=== PATIENT | male | born 1985 | race Caucasian/White ===

== ENCOUNTER 2024-05-04 00:34 | Emergency (ER) | payer MEDICAID, SELFPAY ==
[2024-05-04 00:36] VITALS: BP 156/102; PULSE 104; RESP 18; O2SAT 98
--- NOTE | 2024-05-04 00:50 | EDNOTE_ITS ---
ED Medical Clearance RME/HPI General Chief complaint: Medical Clearance Stated complaint: MEDICAL CLEARANCE Time Seen by Provider: 05/04/24 00:50 Arrival date/time: 05/04/24 00:34 RME / HPI RME / HPI Narrative: Dr. Willis?s Main ED Evaluation: 38yo male BIB [facility]ORD[facility] presents to the ED for a medical clearance. [employer] was initially called out due to the patient possibly overdosing. On scene, they found the patient to be sleeping, but he woke up and ran. He was ultimately arrested. Here in the ED, patient is refusing to provide any history or answer any questions. He will not let me examine him. Related Information Home Medications ?Medication ?Instructions ?Recorded ?Confirmed No Known Home Medications 01/23/2004/22 Allergies Allergy/AdvReac Type Severity Reaction Status Date / Time No Known Allergies Allergy Verified 04/07/23 08:14 Review of Systems Review of Systems ROS Unobtainable: other (unobtainable due to the patient being uncooperative) Past Medical History Past Medical History NEUROLOGIC: Negative Neurological Disorders CARDIAC: Negative Cardiac Disorders or Congestive Heart Failure RESPIRATORY: Negative Chronic Obstructive Pulmonary Disease (COPD) GASTROINTESTINAL: Negative Gastrointestinal Disorders GENITOURINARY: Negative Genitourinary Disorders or Renal Disease MUSCULOSKELETAL: Negative Musculoskeletal Disorders ENDOCRINE: Negative Endocrine Disorders, Diabetes Mellitus Type 1 or Diabetes Mellitus Type 2 HEMATOLOGIC: Negative Blood Disorders PSYCHO/SOCIAL: Positive Schizophrenia, Bipolar Disorder and Behavior Problems Family History FAMILY HISTORY: Negative Family Cardiac Disorders Social History SMOKING STATUS: Unknown if ever smoked SUBSTANCE USE: methamphetamine ED Exam Narrative Physical exam: Patient refused to allow me to perform a physical examination. Course Quality Measures none Orders Category Date Time Status EKG (ED ONLY) *Do not use* NOW Care 05/04/24 00:53 Completed EKG (ED Only) Stat Exams 05/04/24 00:53 Ordered Vital Signs Vital signs: Vital Signs Pulse Rate 104 H 05/04/24 00:36 Respiratory Rate 18 05/04/24 00:36 Blood Pressure 156/102 H 05/04/24 00:36 Pulse Oximetry (%) 98 05/04/24 00:36 Oxygen Delivery Method Room Air 05/04/24 00:36 Medical Clearance MDM Narrative MDM Narrative:: Scribe Attestation: 05/04/24 Erica Vega am scribing for and in the presence of Dr. Willis. Patient data External records reviewed:: [facility] previous records (Per chart review, patient was seen here on 04/06/23 for acute psychosis.) Clinical information provided by:: patient Social determinants that could affect healthcare access:: mental health Patient has the following chronic illnesses:: schizophrenia, bipolar disorder How is presenting disease/condition affected by chronic disease/condition?: uneffected by Evaluation data The following diagnostics were reviewed and interpreted by me:: EKG tracing(s) Lab and/or radiology exams considered but not ordered:: none Interpretation Summary: none Medications / Prescriptions Medications or Prescriptions considered but not ordered:: none Medication administrations:: none Consultations Consultation(s) initiated? (list below): No Diagnosis Medical Clearance Differential Diagnosis: other (medical clearance) Most likely diagnosis given after review of the tests above:: see below Admission Indicated Admission indicated?: not indicated Admission Request Was there a request for admission?: No Disposition Plan Disposition Plan: Discharge Discharge Attestation Discharge Attestation: The patient and all family members were given an opportunity to ask questions and understood the discharge instructions. Discharge instructions specifically effects, indications for sooner follow up or return to the emergency department, and the expected course of current diagnosis. Patient condition: Stable Discharge Plan Plan Patient Disposition: Shelter/Court/Law Disposition Comment: Stable for discharge into police custody Prescriptions/Referrals Prescriptions/Med Rec: No Action No Known Home Medications Referrals: [facility] [Outside] - In 1 week Problem List Clinical Impression: Medical clearance for incarceration Patient/Caregiver Discharge Instructions Discharge Activity: activity as tolerated Education Materials: Reducing Your Health Risks ... Additional Instructions: Please return to the emergency department if you have any worsening or any further medical problems. Otherwise you should follow-up with your primary care doctor or in the family [facility] within the next several days. Print Language: Turkmen Stand Alone Forms: April Award Info., Patient Portal Info Letter
== END 2024-05-04 01:27 ==
LOC: SERX 01:43
PROVIDERS: Emergency Provider Emergency Medicine
DX: Z02.89 Encounter for other administrative examinations (principal); F20.9 Schizophrenia, unspecified; F31.9 Bipolar disorder, unspecified
CPT/HCPCS: 93005; 99283

== ENCOUNTER 2024-05-04 12:45 | Emergency (ER) | payer MEDICAID, SELFPAY ==
[2024-05-04 12:49] VITALS: BP 158/93; PULSE 98; RESP 18; TEMP 35.5; O2SAT 100
--- NOTE | 2024-05-04 12:51 | PD.EDPSYCH ---
ED Psych RME/HPI General Chief Complaint: Psychiatric Symptoms Stated Complaint: 5150 HOLD Time Seen by Provider: 05/04/24 12:48 Arrival date/time: 05/04/24 12:45 RME / HPI RME / HPI Narrative: 38-year-old male patient, homeless, was brought in by EMS for 5150 hold. Apparently patient was released from nursing home today, was in the nursing home for 12 hours after being noted to be roaming around, yesterday. Patient was placed on a 5150 hold due to not being able to care for himself. On my initial evaluation patient answer questions only his name other than that he is refusing to answer questions. Related Data Home Medications ?Medication ?Instructions ?Recorded ?Confirmed No Known Home Medications 01/23/20 04/02/21 Allergies Allergy/AdvReac Type Severity Reaction Status Date / Time No Known Allergies Allergy Verified 04/07/23 08:14 Review of Systems Review of Systems ROS Unobtainable: unobtainable due to mental status and unobtainable due to medical condition ED Exam Narrative Physical exam: VITAL SIGNS: Reviewed. GENERAL APPEARANCE: Alert and good eye contact however not following commands and not answering questions, no acute distress, unkept HEAD AND FACE: Non-traumatic. ENT: PERRL, pink conjunctivitis, eyelid no trauma, Mucous membrane moist. NECK: Supple, nontender, no nuchal rigidity. CHEST: No tenderness, no crepitus, no paradoxical movement, no retractions. LUNGS: Clear, well ventilated, symmetric, no rales, no wheezing, no ronchi, no stridor, good breath sounds bilaterally. HEART: Regular rate, regular rhythm, no murmur, no gallops. ABDOMEN: Soft, positive bowel sounds, nondistended, no guarding, nontender, no rebound, no masses, RECTAL: Deferred. GENITAL: Deferred. NEUROLOGICAL: Gross motor function intact sensory function intact, Appropriate for age. MUSCULOSKELETAL: low back nontender, full range of motion. EXTREMITIES: Nontender, full range of motion. SKIN: Color pink, dry, no rash, no lacerations, no abrasions, no contusions. LYMPHATICS: Deferred. Course Quality Measures none Orders Category Date Time Status Diet Regular Diet 05/04/24 Dinner Active Acetaminophen Stat Lab 05/04/24 13:32 Completed Alcohol, Blood Medical Stat Lab 05/04/24 13:32 Completed CBC Stat Lab 05/04/24 13:32 Completed CMP [Comprehensive Metabolic Panel] Stat Lab 05/04/24 13:32 Completed Drug Screen,Urine Stat Lab 05/04/24 16:01 Completed Salicylate Stat Lab 05/04/24 13:32 Completed Urinalysis Stat Lab 05/04/24 16:01 Completed Vital Signs Vital signs: Vital Signs Temperature 96 F L 05/04/24 12:49 Pulse Rate 98 05/04/24 12:49 Respiratory Rate 18 05/04/24 12:49 Blood Pressure 158/93 H 05/04/24 12:49 Pulse Oximetry (%) 100 05/04/24 12:49 Oxygen Delivery Method Room Air 05/04/24 12:49 Psych MDM Narrative MDM Narrative:: 38-year-old male patient, homeless, was brought in by EMS for 5150 hold. Apparently patient was released from nursing home today, was in the nursing home for 12 hours after being noted to be roaming around, yesterday. Patient was placed on a 5150 hold due to not being able to care for himself. On my initial evaluation patient answer questions only his name other than that he is refusing to answer questions. Patient tested positive for methamphetamine. Patient is medically cleared. Patient was seen by social science analyst earlier today, and pending placement Care transferred to Dr Murry at 11 pm for final disposition Patient data External records reviewed:: EMS form Clinical information provided by:: patient Social determinants that could affect healthcare access:: mental health Patient has the following chronic illnesses:: Mental health How is presenting disease/condition affected by chronic disease/condition?: caused by Evaluation data The following diagnostics were reviewed and interpreted by me:: lab results Lab and/or radiology exams considered but not ordered:: None Interpretation Summary: Laboratory workup significant for positive for meth otherwise unremarkable. Medications / Prescriptions Medications or Prescriptions considered but not ordered:: None Medication administrations:: None Consultations Consultation(s) initiated? 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
[2024-05-04 12:53] VITALS: PULSE 76; RESP 18; O2SAT 97; BMI 22.1
--- NOTE | 2024-05-04 13:09 | PC.CC ---
Patient is a 38 year-old male BIBA from [facility] on a 5150-hold by Mental Health Clinician, Vee Mckee for Gravely Disabled and Danger to Self. Upon medical clearance ASW will complete a mental health evaluation.
--- NOTE | 2024-05-04 13:20 | PC.NURSE ---
PT BIB EMS ON A 5150 HOLD FOR GRAVELY DISABLED AND HARM TO SELF, THIS PT WAS PLACED ON THIS 5150 HOLD FROM THE ASSISTED AFTER HE SPEND APROX 12H INCARCERATED FOR PUBLIC INTOXICATION. INITIAL ASSESSMENT SHOWED THE PT UNKEMPT, TALKING TO SELF, RESPONDING TO INTERNAL STIMULI, AND UNABLE TO STAY IN A CONVERSATION WITHOUT HALLUCINATING. PT IS A GCS OF 15, AND A&O X2. PT WAS GIVEN UPDATE ON PLAN OF CARE. 1 ON 1 SITTER IN PLACED
[2024-05-04 13:47] LABS: Basophils % (Auto) 0 % (0-2.5); Eosinophils % (Auto) 0 % (0-10); Hematocrit 44.9 % (41.0-53.0); Hemoglobin 15.3 g/dL (13.5-16.0); Immature Granulocytes % (Auto) 0 % (0-0); Immature Granulocytes Auto 0.02 Thou/mm3 (0.00-0.00); Lymphocytes # (Auto) 1.3 Thou/mm3 (1.0-4.8); Lymphocytes % (Auto) 14 % (10-50); Mean Corpuscular HGB Conc 34.1 g/dl (31.0-37.0); Mean Corpuscular Hemoglobin 29.5 pg (25.0-35.0); Mean Corpuscular Volume 87 fL (80-100); Monocytes # (Auto) 0.9 Thou/mm3 (0.0-0.8); Monocytes % (Auto) 10 % (0-12); Neutrophils # (Auto) 6.9 Thou/mm3 (1.8-7.7); Neutrophils % (Auto) 76 % (37-80); Nucleated Red Blood Cell % 0 /100 WBC (0); Platelet Count 353 Thou/mm3 (140-440); RDW Standard Deviation 45.2 fL (35.1-43.9); Red Blood Count 5.19 Miln/mm3 (4.50-5.90); White Blood Count 9.1 Thou/mm3 (3.8-10.6)
[2024-05-04 14:01] LABS: Acetaminophen < 2.0 mcg/mL (10.0-20.0); Alanine Aminotransferase 27 U/L (10-49); Albumin, Serum 5.1 gm/dL (3.5-5.0); Albumin/Globulin Ratio 1.7 (1.2-2.2); Alcohol, Blood Medical < 3.0 mg/dL (0-10.0); Alkaline Phosphatase 121 U/L (46-116); Anion Gap 12 (7-16); Aspartate Amino Transferase 58 U/L (0-34); BUN/Creatinine Ratio 16 Ratio (12-20); Bilirubin,Total 0.4 mg/dL (0.3-1.2); Blood Urea Nitrogen 16 mg/dL (9-23); Calcium 10.2 mg/dL (8.3-10.6); Calcium (Corrected) 10.2 mg/dL (8.5-10.1); Carbon Dioxide 23.5 mMol/L (20.0-31.0); Chloride 105 mMol/L (98-107); Estimated Creatinine Clearance 94.5 mL/min (>60); Glucose 89 mg/dL (74-106); Osmolality,Calculated 279 (275-295); Potassium 3.8 mMol/L (3.4-5.1); Salicylate < 3.0 mg/dL; Sodium 140 mMol/L (136-145); Total Protein 8.1 gm/dL (5.7-8.2); eGFR > 60 See Note
[2024-05-04 15:03] VITALS: BP 159/99; PULSE 82; RESP 18; TEMP 36.4; O2SAT 99
[2024-05-04 16:15] LABS: Collection Type, Urine Clean Catch; Squamous Epithelial Cell,Urine 0 /hpf (0-5)
[2024-05-04 16:34] LABS: Bacteria,Urine Rare; Bilirubin,Urine Negative (Negative); Blood,Urine Negative (Negative); Clarity,Urine Clear (Clear/Hazy); Color,Urine Yellow (Lt Yel-Yel); Glucose, Urine Negative (Negative); Hyaline Casts,Urine 1 /hpf (0-1); Ketones,Urine 2+ (Negative); Leukocyte Esterase,Urine Negative (Negative); Nitrite,Urine Negative (Negative); PH,Urine 5.5 (5.0-7.0); Protein,Urine 1+ (Neg - Trace); RBC,Urine 5 /hpf (0-3); Specific Gravity,Urine 1.026 (1.001-1.035); Urobilinogen,Urine Negative mg/dL (0.0-1.0); WBC,Urine 3 /hpf (0-5)
[2024-05-04 16:37] LABS: Sperm,Urine Present
[2024-05-04 16:40] LABS: Amphetamine/Methamp Scrn,U Positive (Negative); Barbiturate Screen,Urine Negative (Negative); Benzodiazepines Screen,Urine Negative (Negative); Benzoylecgonine Screen, Ur Negative (Negative); Fentanyl Screen,Urine Negative (Negative); Opiate Screen,Urine Negative (Negative); THC Screen,Urine Negative (Negative)
--- NOTE | 2024-05-04 17:17 | PC.CC ---
Patient was BIBA on a 5150-hold by [facility]-Clinician Vee Mckee for Gravely Disable and Danger to Self. ASWKyra introduced self, role, and reason for visit to patient. Patient appears alert and oriented to self, and [facility]. Patient presents unkempt and disheveled. Patient unable to answer questions as he stared at the wall and then window. Patient unable to engage in assessment. ASW made contact with [facility] staff report patient was discharged from outpatient mental health services in January 2023. Prior ED visits it was documented patient has a mental health diagnosis of Schizophrenia. Upon clinical consultation with BRIQUETTE OPERATORPia patient's 5150-hold will be upheld for Gravely Disabled. ASW provided update of placing patient at an LPS facility to Dr. Valderrama, DIAMOND Phelps, screen printing inspector Gabriella, and bedside RN Quang. ASW to send referral to LPS facilities via [facility]. ASW unable to provide advisement as patient is not able to engage.
--- NOTE | 2024-05-04 18:46 | PC.NURSE ---
[facility] called for update, rejected patient due to acuity and availability. Suggested resubmitting case if pt is still in 24 hours. Case Management and Charge nurse Tan made aware.
[2024-05-04 19:55] VITALS: BP 147/87; PULSE 92; RESP 20; TEMP 36.8; O2SAT 97
--- NOTE | 2024-05-04 19:57 | PC.NURSE ---
attempted to do assessments patient did not respond to no questions
--- NOTE | 2024-05-04 21:52 | PC.NURSE ---
MELISSA CALLED FROM [facility] BEDS AT THE [facility] TO GET NURSING CLINICALS
[2024-05-04 21:56] VITALS: BP 142/80; PULSE 80; RESP 20; TEMP 36.8; O2SAT 99
--- NOTE | 2024-05-04 22:05 | PC.NURSE ---
pt was offered food and drinks, but declined. Will continue to offer throughout the shift.
--- NOTE | 2024-05-04 23:14 | EDNOTE_ITS ---
Emergency Room Addendum <Erica Alex - Last Filed: 05/04/24 23:14> Addendum Narrative: I took over the care from Paul Phelps NP at 6 PM on 05/04/2024, see his notes for complete H&P and ED course. <Chaitanya Menchaca MD - Last Filed: 05/05/24 01:52> Addendum Narrative: I took over the care from Paul Phelps NP at 6 PM on 05/04/2024, see his notes for complete H&P and ED course. At 6 AM on 05/05/2024, the care of the patient was transferred to Dr. HARDY. Evaluation by our ED adult live in caregiver pending. During my watch, the patient remained stable. Chaitanya Menchaca MD
[2024-05-05 04:05] VITALS: BP 138/79; PULSE 83; RESP 18; TEMP 36.6; O2SAT 98
--- NOTE | 2024-05-05 06:15 | PD.EDADDENDU ---
Emergency Room Addendum Addendum Narrative: 0600: Care assumed from Dr. Menchaca, the previous shift emergency physician. Past medical, surgical, social and family history reviewed. Vitals and home medications reviewed. I will assume the care of the patient at this time, pending psychiatric placement. Please refer to the emergency department record for history and examination from initial visit.? Physical exam by me shows patient under no acute distress at this time. The patient was placed in ED observation care at 05/05/2024 at 0600 hours. The patient was placed in ED observation care because of undifferentiated decompensated behavioral health evaluation, no behavioral health bed available. The patients past medical history, social history, and family history were reviewed. The plan of care will include serial examinations. While in ED observation the patient will have access to water, food, and personal hygiene. If the patient takes home medication(s), they will be continued in ED observation. 1050: Patient picked up by EMS, accepted to [facility]. ED observation care ended at 05/05/2024 at 1050 hours. Diagnosis: Drug-induced psychotic disorder
--- NOTE | 2024-05-05 07:25 | PC.NURSE ---
spoke w/[facility] intake, will present case to team, and call back
--- NOTE | 2024-05-05 08:06 | PC.NURSE ---
SPOKE W/KUN FROM [facility], SHE REPORTS PT IS ACCEPTED, WOULD LIKE A COVID AND WILL CALL BACK W/ACCEPTING DOCTOR NAME
[2024-05-05 08:18] VITALS: BP 127/86; PULSE 78; RESP 17; TEMP 36.2; O2SAT 100
--- NOTE | 2024-05-05 08:30 | PC.NURSE ---
PT AT ALL OF BREAKFAST
--- NOTE | 2024-05-05 08:40 | PC.NURSE ---
TESTED PT FOR COVID AT FACILITY REQUEST, FIRST TEST POSITIVE, SECOND TEST PERFORMED TO CONFIRM, SECOND TEST WAS ALSO POSITIVE.
--- NOTE | 2024-05-05 08:51 | PC.CC ---
Patient was accepted to [facility] by Dr. Hunter Unit. 1, accepting information was provided by Nataly. Nurse to Nurse report to be given . ASW arranging transportation. ASWyoon provided accepting information and discharge plan to Dr. Omalley, Zelalem Quiroz, and bedside RN Lidia.
--- NOTE | 2024-05-05 10:38 | PC.NURSE ---
pt belongings leaving with pt
== END 2024-05-05 11:07 ==
PROVIDERS: Nurse Practitioner Family; Emergency Provider Emergency Medicine
DX: Z00.8 Encounter for other general examination (principal); F19.959 Other psychoactive substance use, unspecified with psychoactive substance-induced psychotic disorder, unspecified; Z59.00 Homelessness unspecified; Z75.1 Person awaiting admission to adequate facility elsewhere
CPT/HCPCS: 36415; 80053; 80307; 80320; 80329; 81001; 85025; 87811; 90839; 96127; 99285; G0480

== ENCOUNTER 2024-07-30 17:48 | Inpatient (IN) | payer MEDICAID, SELFPAY ==
[2024-07-30 18:05] VITALS: BP 139/97; PULSE 163; RESP 17; TEMP 36.5; O2SAT 97
--- NOTE | 2024-07-30 18:30 | EDNOTE_ITS ---
ED Medical Clearance RME/HPI General Chief complaint: Medical Clearance Stated complaint: MEDICAL CLEARANCE, FAST HEART RATE Time Seen by Provider: 07/30/24 18:33 Arrival date/time: 07/30/24 17:48 RME / HPI RME / HPI Narrative: Dr. Willis?s Main ED Evaluation: 38yo male with a history of schizophrenia, bipolar disorder, methamphetamine abuse BIB PPD presents to the ED for a medical clearance. Per PPD paperwork, patient was brought in due to his heart rate being too high. By the time I saw the patient, patient was cited out by PPD and had not given report to the nurse. Patient is awake and alert, but is refusing to answer any questions. Related Information Home Medications ?Medication ?Instructions ?Recorded ?Confirmed No Known Home Medications 01/23/2004/22 Allergies Allergy/AdvReac Type Severity Reaction Status Date / Time No Known Allergies Allergy Verified 04/07/23 08:14 Review of Systems Review of Systems Systems Reviewed: All systems reviewed, normal except as documented Past Medical History Past Medical History NEUROLOGIC: Negative Neurological Disorders CARDIAC: Negative Cardiac Disorders or Congestive Heart Failure RESPIRATORY: Negative Chronic Obstructive Pulmonary Disease (COPD) GASTROINTESTINAL: Negative Gastrointestinal Disorders GENITOURINARY: Negative Genitourinary Disorders or Renal Disease MUSCULOSKELETAL: Negative Musculoskeletal Disorders ENDOCRINE: Negative Endocrine Disorders, Diabetes Mellitus Type 1 or Diabetes Mellitus Type 2 HEMATOLOGIC: Negative Blood Disorders PSYCHO/SOCIAL: Positive Schizophrenia, Bipolar Disorder and Behavior Problems Family History FAMILY HISTORY: Negative Family Cardiac Disorders Social History SMOKING STATUS: Unknown if ever smoked SUBSTANCE USE: methamphetamine ED Exam Narrative Physical exam: GENERAL APPEARANCE: awake, alert, refusing to answer questions, well-developed, well-nourished, no acute distress VITALS: All vitals were reviewed and the pulse ox is 97% on room air, which is normal according to my interpretation. HEENT: Normocephalic, atraumatic; pupils equal, round, reactive to light; EOMI; mucous membranes pink, moist; oropharynx clear NECK: Supple LUNGS: CTABL; no wheezes, no rales, no rhonchi HEART: Regular rate, regular rhythm; normal S1, S2; no murmurs ABDOMEN: non distended; normal BS; soft, no tenderness, no guarding, no rebound; no masses, no organomegaly, no hernia BACK: no CVA tenderness EXTREMITIES: atraumatic; no edema NEUROLOGIC: awake; alert; cranial nerves II-XII grossly intact PSYCHIATRIC: appropriate mood and affect SKIN: warm, dry, normal color; no rashes Course Course Course Narrative: CXR is ordered for determining the etiology of palpitations. Quality Measures Possible source: unknown Blood cultures ordered: yes Antibiotic ordered: Yes Pertinent labs: 07/30/24 07/30/24 19:56 21:12 Lactic Acid 8.1 H* mMol/L Pending (0.4-2.0) Procalcitonin 0.51 H ng/ml (0.0-0.49) sepsis Orders Category Date Time Status Wood Flooring Specialist NOW Care 07/30/24 18:33 Active Wood Flooring Specialist Q4H START 00 Care 07/30/24 18:32 Completed Catheter [Urinary Catheter] QS Care 07/30/24 19:49 Active Continuous Pulse Oximetry NOW Care 07/30/24 18:33 Completed EKG (ED ONLY) *Do not use* NOW Care 07/30/24 18:31 Completed IV [Insert IV] NOW Care 07/30/24 18:[address] head/brain wo con Stat Exams 07/30/24 19:40 Completed EKG (ED Only) Stat Exams 07/30/24 18:31 Draft XR chest 1V portable Stat Exams 07/30/24 18:34 Completed Alcohol, Blood Medical Stat Lab 07/30/24 18:52 Completed Ammonia Stat Lab 07/30/24 19:56 Completed B-Type Natriuretic Peptide Stat Lab 07/30/24 18:52 Completed Blood Culture (Lab) Stat Lab 07/30/24 19:51 Received CBC Stat Lab 07/30/24 18:52 Completed Comprehensive Metabolic Panel Stat Lab 07/30/24 18:52 Completed Creatine Kinase Stat Lab 07/30/24 19:56 Completed Drug Screen,Urine Stat Lab 07/30/24 19:47 Received Lactate (Lactic Acid) Stat Lab 07/30/24 19:56 Results Lactate (Lactic Acid) Stat Lab 07/30/24 21:12 Received Magnesium Stat Lab 07/30/24 18:52 Completed Partial Thromboplastin Time Stat Lab 07/30/24 18:52 Completed Procalcitonin Stat Lab 07/30/24 19:56 Completed Prothrombin Time with INR Stat Lab 07/30/24 18:52 Completed Troponin I Stat Lab 07/30/24 18:52 Completed Troponin I Stat Lab 07/30/24 21:12 Received Urinalysis Stat Lab 07/30/24 19:47 Completed Sodium Chloride 0.9% 1000 ml [Ns] 1,000 ml Med 07/30/24 18:33 Discontinued IV 999 mls/hr Sodium Chloride 0.9% 1000 ml [Ns] 1,000 ml Med 07/30/24 19:35 Discontinued IV 999 mls/hr Sodium Chloride 0.9% 1000 ml [Ns] 1,000 ml Med 07/30/24 21:02 Active IV 999 mls/hr Sodium Chloride 0.9% 500 ml [Ns] 500 ml Med 07/30/24 19:38 Discontinued IV 999 mls/hr cefTRIAXone/D5w 1gm IV premix [Rocephin/D5w 1gm IV Med 07/30/24 19:37 Discontinued premix] 1 gm in 50 ml IV X1 hydrALAZINE INJ [Apresoline Inj] Med 07/30/24 19:40 Discontinued 10 mg IVP X1 ONE Vital Signs Vital signs: Vital Signs Temperature 97.7 F 07/30/24 18:05 Pulse Rate 163 H 07/30/24 18:05 Respiratory Rate 17 07/30/24 18:05 Blood Pressure 139/97 H 07/30/24 18:05 Pulse Oximetry (%) 97 07/30/24 18:05 Oxygen Delivery Method Room Air 07/30/24 18:05 Medical Clearance MDM Narrative MDM Narrative:: Scribe Attestation: 07/30/24 - Erica Gomez am scribing for and in the presence of Dr. Willis. 1935: Sepsis alert initiated. Orders made at this time are congruent with ED Adult Sepsis Order List. Re-evaluation is to be completed. NS IVF was started at 1842. 1940: Patient's heart rate has improved to 127 (was initially 163 on ED arrival). Diastolic blood pressure is 115. Hydralazine 10mg IV ordered. 2028: NS IVF infused. 2058: Sepsis reassessment performed consisting of lab review, vitals, physical exam including auscultation of heart, lungs, and visual evaluation of capillary refills, mucosal membranes and extremities. 2105: Discussed case with the resident physician, attending Dr. Yi from Hospitalist service regarding admission. Discussed patients ED course, exam findings, labs, and radiology results. The Hospitalist agrees to accept the patient for admission. 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.) and Other (specify) (PPD paperwork) Clinical information provided by:: patient Social determinants that could affect healthcare access:: mental health Patient has the following chronic illnesses:: schizophrenia, bipolar disorder How is presenting disease/condition affected by chronic disease/condition?: uneffected by Evaluation data The following diagnostics were reviewed and interpreted by me:: lab results, radiology exam(s) and EKG tracing(s) Lab and/or radiology exams considered but not ordered:: none Interpretation Summary: WBC elevated at 19.2, Hemoglobin 18.6, Hematocrit 52.6, Sodium elevated at 153, Anion Gap 24, Creatinine elevated at 3.2, eGFR is low at 24, Magnesium is elevated at 2.9, LFTs are chronically elevated, Troponin elevated at 0.108, Lactic Acid elevated at 8.1, Ammonia less than 10, Procalcitonin 0.51, UA unremarkable, Total Creatinine Kinase 456, Blood Alcohol negative. CT head performed and is pending at the time of admission. CXR shows normal cardiac silhouette, normal sharp diaphragmatic edge, no infiltrates, normal costophrenic angles, according to my interpretation. EKG done at 1831, sinus tachycardia, rate of 135, normal axis, no ectopy, no acute ischemia, according to my interpretation. Medications / Prescriptions Medications or Prescriptions considered but not ordered:: none Medication administrations:: Medication Administration History Acetaminophen (Acetaminophen Supp 650 Mg Supp) 650 mg MN Q6HR PRN PRN Reason: Fever > 100.4 Stop: 08/29/24 21:28 Heparin Sodium (Porcine) (Heparin Sod Inj 5000 Unit/Ml Vial) 5,000 unit SC Q8HR [facility] Stop: 08/13/24 21:59 Sodium Chloride (Ns) 1,000 mls @ 999 mls/hr IV .Q1H1M ONE Stop: 07/30/24 22:02 Last Admin: 07/30/24 21:33 Dose: 999 mls/hr Documented By: MANDI Sodium Chloride (Ns) 1,000 mls @ 75 mls/hr IV .[id number] [facility] Stop: 07/31/24 10:49 Piperacillin Sod/Tazobactam (Sod 4.5 gm/ Sodium Chloride) 100 mls @ 200 mls/hr IV Q8HR [facility] Stop: 08/06/24 21:59 Labetalol HCl (Labetalol Inj 5 Mg/Ml Vial 20 Ml) 10 mg IVP Q6H PRN PRN Reason: SBP>180, DBP>105,Hold if HR<70 Stop: 08/29/24 21:35 Ondansetron HCl (Ondansetron Inj 2 Mg/Ml Inj 2 Ml) 4 mg IVP Q6H PRN; Protocol PRN Reason: NAUSEA OR VOMITING Stop: 08/29/24 21:28 Pharmacy Consult (Vancomycin Pharmacy To Dose 1 Each Each) 1 each IV QDAY MARIA G Stop: 08/29/24 21:34 Discontinued Medications Hydralazine HCl (Hydralazine Inj 20 Mg/Ml Vial) 10 mg IVP X1 ONE Stop: 07/30/24 19:41 Last Admin: 07/30/24 19:55 Dose: 10 mg Documented By: MANDI Sodium Chloride (Ns) 1,000 mls @ 999 mls/hr IV .Q1H1M ONE Stop: 07/30/24 19:33 Last Infusion: 07/30/24 20:29 Dose: Infused Documented By: Admin: 07/30/24 18:42 Dose: 999 mls/hr Documented By: Sodium Chloride (Ns) 1,000 mls @ 999 mls/hr IV .Q1H1M ONE Stop: 07/30/24 20:35 Last Infusion: 07/30/24 21:32 Dose: Infused Documented By: Admin: 07/30/24 20:04 Dose: 999 mls/hr Documented By: MANDI Ceftriaxone Sodium/Dextrose (Rocephin/D5w 1gm Iv Premix) 1 gm in 50 mls @ 100 mls/hr IV X1 ONE Stop: 07/30/24 20:06 Last Infusion: 07/30/24 20:29 Dose: Infused Documented By: Admin: 07/30/24 19:57 Dose: 100 mls/hr Documented By: Sodium Chloride (Ns) 500 mls @ 999 mls/hr IV .Q31M ONE Stop: 07/30/24 20:08 Last Admin: 07/30/24 21:30 Dose: 999 mls/hr Documented By: MANDI see above Consultations Consultation(s) initiated? (list below): Yes Diagnosis Medical Clearance Differential Diagnosis: other (intoxication encephalitis, hypertensive encephalopathy, hemorrhagic CVA, UTI) Most likely diagnosis given after review of the tests above:: psychosis, renal failure, hypertensive encephalopathy Admission Indicated Admission indicated?: indicated Admission Request Was there a request for admission?: Yes Admission Attestation Admission request attestation: Discussed case with [] from Hospitalist service regarding admission. Discussed patients ED course, exam findings, labs, and radiology results. The Hospitalist [agrees,declines] to accept the patient for admission. Disposition Plan Disposition Plan: Admit Critical Care Time Critical Care Time Critical Care Time: Yes Total Critical Care Time (min.): 45 Attestation: The high probability of sudden, clinically significant deterioration in the patient?s condition required the highest level of my preparedness to intervene urgently. The services I provided to this patient were to treat and/or prevent clinically significant deterioration. Services included the following: chart data review, reviewing nursing notes and/or old charts, documentation time, system consultant collaboration regarding findings and treatment options, medication orders and management, direct patient care, vital sign assessments and ordering, interpreting and reviewing diagnostic studies and lab tests. Aggregate critical care time includes only time during which I was engaged in work directly related to the patient?s care, as described above, whether at bedside or elsewhere in the Emergency Department. It did not include time spent performing other reported procedures or the services of residents, students, nurses or physician assistants. Discharge Plan Plan Patient Disposition: Admit Acute Care w/in Hospital Problem List Clinical Impression: Renal failure, Hypertensive encephalopathy, Psychosis
--- NOTE | 2024-07-30 18:31 | EKG_ITS ---
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
--- NOTE | 2024-07-30 18:34 | XR_ITS ---
Examination: AP chest single view Technique one AP portable semiupright chest single view Date and time: July 30, 2024 1853 hours Comparison June 21, 2009 INDICATIONS: Chest pain today. FINDINGS: Normal heart size. No pneumonia or pulmonary edema. Old left clavicle fracture and old left rib fractures IMPRESSION: No active disease
[2024-07-30] MEDS: SODIUM CHLORIDE 0.9% 1000 ML 1,000 ML 999 ML IV ×3 (18:42→21:33)
[2024-07-30 18:59] LABS: Basophils # (Auto) 0.1 Thou/mm3 (0.0-0.2); Basophils % (Auto) 0 % (0-2.5); Eosinophils % (Auto) 0 % (0-10); Hematocrit 52.6 % (41.0-53.0); Hemoglobin 18.6 g/dL (13.5-16.0); Immature Granulocytes % (Auto) 1 % (0-0); Immature Granulocytes Auto 0.09 Thou/mm3 (0.00-0.00); Lymphocytes # (Auto) 0.7 Thou/mm3 (1.0-4.8); Lymphocytes % (Auto) 4 % (10-50); Mean Corpuscular HGB Conc 35.4 g/dl (31.0-37.0); Mean Corpuscular Volume 85 fL (80-100); Monocytes # (Auto) 1.6 Thou/mm3 (0.0-0.8); Monocytes % (Auto) 8 % (0-12); Neutrophils # (Auto) 16.8 Thou/mm3 (1.8-7.7); Neutrophils % (Auto) 87 % (37-80); Nucleated Red Blood Cell % 0 /100 WBC (0); Platelet Count 330 Thou/mm3 (140-440); Red Blood Count 6.21 Miln/mm3 (4.50-5.90); White Blood Count 19.2 Thou/mm3 (3.8-10.6)
[2024-07-30 19:21] LABS: B-Type Natriuretic Peptide 50 pg/mL (0-100)
[2024-07-30 19:23] VITALS: BMI 21.5
[2024-07-30 19:25] VITALS: BP 166/114; PULSE 125; PULSE 126; RESP 16; TEMP 36.6; O2SAT 98
[2024-07-30 19:29] LABS: Alanine Aminotransferase 232 U/L (10-49); Albumin/Globulin Ratio 1.8 (1.2-2.2); Alcohol, Blood Medical < 3.0 mg/dL (0-10.0); Alkaline Phosphatase 193 U/L (46-116); Anion Gap 24 (7-16); Aspartate Amino Transferase 92 U/L (0-34); BUN/Creatinine Ratio 8 Ratio (12-20); Bilirubin,Total 0.6 mg/dL (0.3-1.2); Blood Urea Nitrogen 25 mg/dL (9-23); Calcium 11.5 mg/dL (8.3-10.6); Calcium (Corrected) 11.5 mg/dL (8.5-10.1); Carbon Dioxide 18.1 mMol/L (20.0-31.0); Chloride 111 mMol/L (98-107); Creatinine (Component) 3.2 mg/dL (0.6-1.3); Estimated Creatinine Clearance 29.5 mL/min (>60); Globulin 3.4 gm/dL (2.3-3.5); Glucose 186 mg/dL (74-106); Magnesium 2.9 mg/dL (1.6-2.6); Osmolality,Calculated 312 (275-295); Potassium 4.3 mMol/L (3.4-5.1); Sodium 153 mMol/L (136-145); Total Protein 9.4 gm/dL (5.7-8.2); eGFR 24 See Note
[2024-07-30 19:32] LABS: Troponin I 0.108 ng/mL (0.0-0.045)
--- NOTE | 2024-07-30 19:40 | XR_ITS ---
Examination: CT brain head without contrast. 2-D sagittal coronal reconstructions Date and time of exam:July 30, 20243 hours Comparison January 28, 2008 INDICATIONS: Altered mental status today CTDI: vol (mGy):49.5 DLP: (mGycm):1020 Technique: Multiple CT axial sections of the brain have been obtained, 5 mm slice thickness. Contrast has not been administered. 2-D sagittal, coronal reconstructions have been obtained Low dose protocols were performed. One or more of the following dose reduction techniques were used; automated exposure control, adjustment of the mA and/or KV according to patient size, use of iterative reconstruction technique. Findings: No significant ventricular enlargement. 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 No mass effect or midline shift Basal cisterns are not remarkable. Fourth ventricle is midline. Cranial vault intact. Impression: Negative for acute hemorrhage, mass effect or midline shift
[2024-07-30 19:55] VITALS: BP 169/111; PULSE 121
[2024-07-30] MEDS: hydrALAZINE INJ 20 MG/ML VIAL 10 MG IVP (19:55)
[2024-07-30 19:56] LABS: Partial Thromboplastin Time 22.9 Seconds (22.0-36.0); Prothrombin Time 11.3 Seconds (9.0-12.2)
[2024-07-30] MEDS: cefTRIAXone/D5w 1gm IV premix 1 GM/50 ML BAG IV (19:57)
[2024-07-30 20:05] LABS: Lactate (Lactic Acid) 8.1 mMol/L (0.4-2.0)
[2024-07-30 20:06] LABS: Collection Type, Urine Catheter
[2024-07-30 20:25] LABS: Ammonia < 10 uMol/L (11-32)
[2024-07-30 20:31] VITALS: BP 161/105; PULSE 111; RESP 22; O2SAT 98
[2024-07-30 20:31] LABS: Creatine Kinase 456 U/L (34-171); Procalcitonin 0.51 ng/ml (0.0-0.49)
[2024-07-30 20:33] LABS: Bacteria,Urine Rare; Bilirubin,Urine Negative (Negative); Blood,Urine Negative (Negative); Cellular Casts,Urine < 1 /hpf (0-1); Clarity,Urine Turbid (Clear/Hazy); Color,Urine Yellow (Lt Yel-Yel); Glucose, Urine Negative (Negative); Hyaline Casts,Urine < 1 /hpf (0-1); Ketones,Urine Negative (Negative); Leukocyte Esterase,Urine Negative (Negative); Nitrite,Urine Negative (Negative); Protein,Urine 1+ (Neg - Trace); RBC,Urine 9 /hpf (0-3); Specific Gravity,Urine 1.022 (1.001-1.035); Squamous Epithelial Cell,Urine < 1 /hpf (0-5); Transitional Epi Cells,Urine 1 /hpf (0-5); Urobilinogen,Urine Negative mg/dL (0.0-1.0); WBC,Urine 2 /hpf (0-5)
[2024-07-30 20:36] LABS: Sperm,Urine Present
--- NOTE | 2024-07-30 20:39 | PC.NURSE ---
PATIENT TAKEN TO CT AT THIS TIME.
[2024-07-30] MEDS: SODIUM CHLORIDE 0.9% 500 ML 500 ML 999 ML IV (21:30)
--- NOTE | 2024-07-30 21:39 | PD.RESHP ---
Documentation for date of: 07/30/24 HPI History of Present Illness Chief complaint: AMS History of present illness: 38-year-old male with past medical history of schizophrenia, bipolar disorder, methamphetamine use was admitted to the hospital on 07/30/2024 after came to the ED for medical clearance, but shortly after patient became encephalopathic. Initially patient was alert and awake was even refusing to answer any questions. Afterwards patient became cephalopathic was not able to answer any questions or follow commands. Most of the history was taken from chart review. Patient's blood pressure was elevated in the 160s over 100s and patient's U tox came back positive for meth. As per chart review patient has come in the past for similar symptoms. Initial assessment patient did not have any lower extremity edema, no tenderness on abdominal exam, good bowel sounds, clear bilateral lungs, tachycardic heart rate, but did seem to be dehydrated likely from some burning, and pupils were reactive. ED course: Initially came in hypertensive and tachycardic. Initial labs were relevant for leukocytosis, erythrocytosis, hyponatremia, high anion gap metabolic acidosis, SAULO, lactic acidosis, hypocalcemia, hypomagnesemia, transaminitis, troponinemia, elevated CK, mildly elevated procalcitonin, UA positive for bacteria, and U-Tox positive for meth. Initial imaging included chest x-ray which was unremarkable, EKG which showed sinus tachycardia, and head CT which was unremarkable. ED gave around 4 L of IV fluids as well as hydralazine and ceftriaxone. PMH as above Social Hx: Meth, could not get for the history due to patient's mental status Review of Systems Review of Systems ROS Unobtainable: unobtainable due to mental status Past Medical History Past Medical History NEUROLOGIC: Negative Neurological Disorders CARDIAC: Negative Cardiac Disorders or Congestive Heart Failure RESPIRATORY: Negative Chronic Obstructive Pulmonary Disease (COPD) GASTROINTESTINAL: Negative Gastrointestinal Disorders GENITOURINARY: Negative Genitourinary Disorders or Renal Disease MUSCULOSKELETAL: Negative Musculoskeletal Disorders ENDOCRINE: Negative Endocrine Disorders, Diabetes Mellitus Type 1 or Diabetes Mellitus Type 2 HEMATOLOGIC: Negative Blood Disorders PSYCHO/SOCIAL: Positive Schizophrenia, Bipolar Disorder and Behavior Problems Family History FAMILY HISTORY: Negative Family Cardiac Disorders Social History SMOKING STATUS: Unknown if ever smoked SUBSTANCE USE: methamphetamine Exam Vital Signs Temp Pulse Resp BP Pulse Ox O2 Del Method 98 F 111 H 22 H 161/105 H 98 Room Air 07/30/24 19:25 07/30/24 20:31 07/30/24 20:31 07/30/24 20:31 07/30/24 20:31 07/30/24 20:31 Narrative Exam General: Confused, AO x 0, no acute distress, disabled Eyes: PERRL, EOMI. Anicteric, vision grossly intact. Ears: No ear discharge, Hearing grossly intact. Nose: No nasal discharge. Mouth/Throat: Dry mucous membranes, no redness, no lesions. Neck: Neck supple, non-tender, no cervical lymphadenopathy. Lungs: Clear JANEE to auscultation and percussion, No accessory muscle use. Cardio: Normal S1/S2, regular rhythm, no murmurs, no JVD Abdomen: Soft, non-tender, no palpable masses, peristalsis present, no guarding or rebound. Extremities: Symmetrical, no significant deformities, no peripheral edema , non-tender, peripheral pulses presents. Skin: No rashes, no lesions, warm to touch. Neuro: Extremely limited due to patient's mental status, but moving all extremities, pupils were reactive, and was talking yet not being coherent. Results: Labs 07/30/24 18:52 07/30/24 18:52 Labs: Short CBC 07/30/24 Range/Units 18:52 WBC 19.2 H (3.8-10.6) Thou/mm3 Hgb 18.6 H* (13.5-16.0) g/dL Hct 52.6 (41.0-53.0) % Plt Count 330 (140-440) Thou/mm3 BMP 07/30/24 18:52 Sodium 153 H Potassium 4.3 Chloride 111 H Carbon Dioxide 18.1 L BUN 25 H Creatinine 3.2 H Glucose 186 H Calcium 11.5 H Cardiac Enzymes 07/30/24 07/30/24 Range/Units 18:52 19:56 Total Creatine Kinase 456 H (34-171) U/L Troponin I 0.108 H* (0.0-0.045) ng/mL Liver Function 07/30/24 Range/Units 18:52 Total Bilirubin 0.6 (0.3-1.2) mg/dL AST 92 H (0-34) U/L ALT 232 H (10-49) U/L Alkaline Phosphatase 193 H (46-116) U/L Albumin 6.0 H (3.5-5.0) gm/dL Urine 07/30/24 Range/Units 19:47 Urine Color Yellow (Lt Yel-Yel) Urine Clarity Turbid A (Clear/Hazy) Urine pH 6.0 (5.0-7.0) Ur Specific [place] 1.022 (1.001-1.035) Urine Protein 1+ A (Neg - Trace) Urine Glucose (UA) Negative (Negative) Quality Measures Quality Measures sepsis Current suspected stage: sepsis Possible source: unknown Blood cultures ordered: yes Antibiotic ordered: Yes Medications Home Medications and Allergies Home Medications ?Medication ?Instructions ?Recorded ?Confirmed ?Type No Known Home Medications 01/23/20 04/02/21 History Allergies Allergy/AdvReac Type Severity Reaction Status Date / Time No Known Allergies Allergy Verified 04/07/23 08:14 Visit Medications Acetaminophen (Acetaminophen Supp 650 Mg Supp) 650 mg IN Q6HR PRN PRN Reason: Fever > 100.4 Stop: 08/29/24 21:28 Heparin Sodium (Porcine) (Heparin Sod Inj 5000 Unit/Ml Vial) 5,000 unit SC Q8HR [facility] Stop: 08/13/24 21:59 Sodium Chloride (Ns) 1,000 mls @ 999 mls/hr IV .Q1H1M ONE Stop: 07/30/24 22:02 Last Admin: 07/30/24 21:33 Dose: 999 mls/hr Sodium Chloride (Ns) 1,000 mls @ 75 mls/hr IV .[id number] [facility] Stop: 07/31/24 10:49 Piperacillin Sod/Tazobactam (Sod 4.5 gm/ Sodium Chloride) 100 mls @ 200 mls/hr IV Q8HR [facility] Stop: 08/06/24 21:59 Labetalol HCl (Labetalol Inj 5 Mg/Ml Vial 20 Ml) 10 mg IVP Q6H PRN PRN Reason: SBP>180, DBP>105,Hold if HR<70 Stop: 08/29/24 21:35 Ondansetron HCl (Ondansetron Inj 2 Mg/Ml Inj 2 Ml) 4 mg IVP Q6H PRN; Protocol PRN Reason: NAUSEA OR VOMITING Stop: 08/29/24 21:28 Pharmacy Consult (Vancomycin Pharmacy To Dose 1 Each Each) 1 each IV QDAY [facility] Stop: 08/29/24 21:34 Discontinued Medications Hydralazine HCl (Hydralazine Inj 20 Mg/Ml Vial) 10 mg IVP X1 ONE Stop: 07/30/24 19:41 Last Admin: 07/30/24 19:55 Dose: 10 mg Sodium Chloride (Ns) 1,000 mls @ 999 mls/hr IV .Q1H1M ONE Stop: 07/30/24 19:33 Last Infusion: 07/30/24 20:29 Dose: Infused Sodium Chloride (Ns) 1,000 mls @ 999 mls/hr IV .Q1H1M ONE Stop: 07/30/24 20:35 Last Infusion: 07/30/24 21:32 Dose: Infused Ceftriaxone Sodium/Dextrose (Rocephin/D5w 1gm Iv Premix) 1 gm in 50 mls @ 100 mls/hr IV X1 ONE Stop: 07/30/24 20:06 Last Infusion: 07/30/24 20:29 Dose: Infused Sodium Chloride (Ns) 500 mls @ 999 mls/hr IV .Q31M ONE Stop: 07/30/24 20:08 Last Admin: 07/30/24 21:30 Dose: 999 mls/hr Assessment & Plan Plan 38-year-old male with past medical history of schizophrenia, bipolar disorder, methamphetamine use was admitted to the hospital on 07/30/2024 for acute encephalopathy likely multifactorial and hypertension. #Acute encephalopathy #Meth use #Leukocytosis #UTI #Hx of schizophrenia and bipolar disorder Patient came in for medical clearance due to tachycardia, but afterwards became encephalopathic Patient was unable to provide any history at the time of assessment. Patient's UA did show some bacteria and patient did have some leukocytosis of 19.2. Patient's U tox also came back positive for meth Encephalopathy could be multifactorial at this time given positive meth which could cause meth induced psychosis versus a manic episode versus infectious etiology versus dehydration versus uncontrolled hypertension Head CT negative and chest x-ray negative UA did show positive for bacteria Plan: Will start patient on Zosyn and vancomycin Blood cultures and urine culture sent Aggressive IV fluids Neuro checks q4h Given unclear etiology of infection ordered chest/abdomen/pelvis CT If no improvement in patient's mental status nor infectious etiology identified than may consider MRI Will continue to monitor #SAULO #High anion gap metabolic acidosis #Lactic acidosis Patient came in with a creatinine of 3.2 from 1 on 05/23 Patient came with a lactic acid of 8.1 which downtrended to 6.3 with an anion gap of 25 and bicarb of 18.1. This could be prerenal likely due to dehydration as patient did seem sunburned, versus drug-induced Plan: Continue to trend lactic acid Avoid nephrotoxin Renally dose medications Aggressive IV fluids #Uncontrolled hypertension Patient Blood pressure 136/97 and his blood pressure went up to 160s over 100s Patient received hydralazine 10 mg IV x 1 in the ED Plan: Will place IV labetalol 10 mg as needed every 6 for SBP above 180 Will slowly decrease patient's blood pressure for now Will continue to monitor #Erythrocytosis #Hypernatremia #Hypercalcemia #Hypomagnesemia Hgb 18.6, NA 153, CA 11.5, magnesium 2.9 This most likely due to hemoconcentration given patient's dehydration Plan: Aggressive IV fluids Will continue to monitor #NSTEMI likely type II Patient troponins up trended from 0.108-0.179 Most likely type II given dehydration and lactic acidosis EKG did not show acute ST changes Plan: Will trend troponins Will continue to monitor Disposition: Patient admitted to telemetry for acute encephalopathy multifactorial Diet: NPO GI prophylaxis: not indicated DVT prophylaxis: heparin sub cu Code: FULL Case disclosed with Attending Dr. Kd Amin PGY1 Disclaimer: Even though this this note was dictated by speech recognition and even though it was carefully revised there may still be minor errors in drafter detail due to voice recognition software. Attending Provider Attestation/Addendum I have examined the patient, reviewed labs and imaging findings, discussed the case with the resident(s), and reviewed entered orders. I agree with the plan of care as outlined in this note, with these additional summaries/recommendations: After examination of the patient and review of the clinical data, I feel that this patient needs admission to the hospital for further treatment and evaluation. Patient is a 38-year-old male with a medical history of psychiatric disorder either schizophrenia or bipolar, substance abuse, and homelessness who presents to [facility] on 07/30/2024 after being brought in by [employer] for medical clearance. Per paperwork patient needed medical clearance for tachycardia although [employer] did not leave report with nurse in regards medical history or events today. Patient seen at bedside. He is sitting up and tracking with eyes although not responding to my questions. The only words patient spoke throughout my entire evaluation was ? are you [place]??. Unfortunately, no history can be obtained from patient at this time and relatively unknown baseline mental status although prior ER visits reviewed and patient's is usually hallucinating and providing minimal history. Patient diagnosed with acute encephalopathy versus psychosis. Patient is currently alert and oriented x 0. Differential is broad at this time including metabolic etiology, psychiatric etiology, infectious, or toxic or all of the above. Lactic acid elevated which may be contributing. No evidence of significant hyperglycemia, ammonia WNL. Order vitamin B12 and thiamine. Possibly infectious component. Will consider LP if no improvement although no evidence of meningitis at this time. CT head showed no acute hemorrhage, mass effect or midline shift. Urine toxicology positive for methamphetamines which is likely contributing. 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 Patient had Rausch catheter placed in ED and has approximately 600 cc dark urine in Rausch catheter bag. Standard delirium precautions and monitor for improvement. Patient diagnosed with sepsis and meets 3 out of 4 SIRS criteria. Leukocytosis present with WBC 19.2, LA 8.1, and Pro-Maurice 0.51. Urinalysis not that impressive with only rare bacteria and chest x-ray shows no pneumonia. POssiblr UTI? Source of sepsis relatively unknown & we will obtain CT of chest/abdomen/pelvis. Possible patient has bacteremia. Order flu and COVID. Patient has evidence of endorgan damage with SAULO and received 30 cc/kg fluid resuscitation in the ED. Start broad-spectrum antibiotics IV vancomycin and Zosyn and de-escalate when appropriate. Lactic acidosis present with LA 8.1 and likely secondary to type A and type B from sepsis and tissue hypoperfusion. Patient is receiving aggressive IV fluids and lactic acidosis improving and we will continue to trend until resolution. Patient diagnosed with acute kidney injury with creatinine 3.2 and BUN 25. Most likely secondary to prerenal azotemia from dehydration and sepsis. Continue IV fluids and repeat renal panel in AM. Avoid nephrotoxic agents and renally dose medications. Mild hypercalcemia on chemistry panel and we will continue IV fluids for now. Troponinemia present with troponin 0.108 which is most likely secondary to demand ischemia in the setting of sepsis and we will continue to trend every 6 hours until downtrend. Minimal transaminitis present and avoid hepatotoxic agents. Unclear at this time if patient is schizophrenic or bipolar. Unknown if he is taking any antipsychotics but should be counseled to avoid excessive heat while on antipsychotics if taking. Repeat hematology and chemistry panel in AM. Please see residents note for additional details and management. Dr. Kd MD
[2024-07-30 21:58] LABS: Lactate (Lactic Acid) 6.3 mMol/L (0.4-2.0)
--- NOTE | 2024-07-30 21:58 | XR_ITS ---
Examination: CT chest, without intravenous contrast. CT abdomen, without intravenous contrast. CT pelvis, without intravenous contrast. 2-D sagittal and coronal reconstructions. 3-D reconstructions. Date and time of exam:July 30, 2024 11:04 PM INDICATIONS: Acute renal insufficiency, unknown source of infection today CTDI vol (mgy) 6.84 DLP (MGycm)400 Technique: Multiple CT images, 3.0 mm slice thickness, obtained chest, abdomen, pelvis, with the high-resolution 64 slice scanner.. Sagittal and coronal 2-D reconstructions are obtained. 3-D reconstructions Low dose protocols were performed. One or more of the following dose reduction techniques were used; automated exposure control, adjustment of the mA and/or KV according to patient size, use of iterative reconstruction technique. Findings: No thoracic aortic aneurysmal dilatation Pulmonary artery segments are not enlarged Mild calcification left anterior descending coronary artery Mild pneumonia left base No pulmonary edema No visualized liver or splenic lesion No gallstones No pancreatic or adrenal mass Moderate right mild left renal parenchymal scar formation No renal or ureteral calculi Aorta normal size Normal appendix No bowel obstruction No diverticulitis Urinary Rasuch catheter Bilateral fat-containing inguinal hernias Mild osteopenia IMPRESSION: Mild pneumonia left base Moderate right and mild left renal parenchymal scar formation
[2024-07-30 22:15] LABS: Troponin I 0.179 ng/mL (0.0-0.045)
[2024-07-30 22:26] LABS: Amphetamine/Methamp Scrn,U Positive (Negative); Barbiturate Screen,Urine Negative (Negative); Benzodiazepines Screen,Urine Negative (Negative); Benzoylecgonine Screen, Ur Negative (Negative); Fentanyl Screen,Urine Negative (Negative); Opiate Screen,Urine Negative (Negative); THC Screen,Urine Negative (Negative)
[2024-07-30] MEDS: HEPARIN SOD INJ 5000 UNIT/ML VIAL SC (22:34)
[2024-07-30] MEDS: SODIUM CHLORIDE 0.9% 1000 ML 1,000 ML 75 ML IV (22:35)
[2024-07-30] MEDS: PIPER/TAZO INJ 4.5 GM in SODIUM CHLORIDE 0.9% (POP) 100 ML IV (22:38)
[2024-07-30 22:59] LABS: Reflex Lactate? Y
[2024-07-30 23:04] VITALS: BP 159/97; PULSE 111; RESP 18; O2SAT 97
[2024-07-31] VITALS (9 sets, daily range): BP systolic 100–160; BP diastolic 65–114; PULSE 72–119; RESP 14–98; TEMP 36.3–36.9; O2SAT 95–99; BMI 21.8
[2024-07-31 00:30] LABS: Lactate (Lactic Acid) 3.3 mMol/L (0.4-2.0)
[2024-07-31 00:39] LABS: Reflex Lactate? Y
[2024-07-31] MEDS: VANCOMYCIN/NS 1 GM IVPB 200 ML IV ×2 (00:56→09:58)
[2024-07-31 03:28] LABS: Reflex Lactate? Y
[2024-07-31 03:40] LABS: Lactate (Lactic Acid) 1.7 mMol/L (0.4-2.0)
[2024-07-31 03:43] LABS: Basophils # (Auto) 0.1 Thou/mm3 (0.0-0.2); Basophils % (Auto) 0 % (0-2.5); Eosinophils % (Auto) 0 % (0-10); Hematocrit 40.3 % (41.0-53.0); Hemoglobin 14.2 g/dL (13.5-16.0); Immature Granulocytes % (Auto) 0 % (0-0); Immature Granulocytes Auto 0.04 Thou/mm3 (0.00-0.00); Lymphocytes # (Auto) 1.6 Thou/mm3 (1.0-4.8); Lymphocytes % (Auto) 12 % (10-50); Mean Corpuscular HGB Conc 35.2 g/dl (31.0-37.0); Mean Corpuscular Hemoglobin 30.3 pg (25.0-35.0); Mean Corpuscular Volume 86 fL (80-100); Monocytes # (Auto) 1.7 Thou/mm3 (0.0-0.8); Monocytes % (Auto) 12 % (0-12); Neutrophils # (Auto) 10.3 Thou/mm3 (1.8-7.7); Neutrophils % (Auto) 75 % (37-80); Nucleated Red Blood Cell % 0 /100 WBC (0); Platelet Count 221 Thou/mm3 (140-440); RDW Standard Deviation 43.5 fL (35.1-43.9); Red Blood Count 4.69 Miln/mm3 (4.50-5.90); White Blood Count 13.7 Thou/mm3 (3.8-10.6)
[2024-07-31 04:18] LABS: Alanine Aminotransferase 140 U/L (10-49); Albumin, Serum 4.2 gm/dL (3.5-5.0); Albumin/Globulin Ratio 1.8 (1.2-2.2); Alkaline Phosphatase 127 U/L (46-116); Anion Gap 14 (7-16); Aspartate Amino Transferase 63 U/L (0-34); BUN/Creatinine Ratio 12 Ratio (12-20); Bilirubin,Total 0.5 mg/dL (0.3-1.2); Blood Urea Nitrogen 16 mg/dL (9-23); Calcium 8.7 mg/dL (8.3-10.6); Calcium (Corrected) 8.7 mg/dL (8.5-10.1); Carbon Dioxide 20.3 mMol/L (20.0-31.0); Chloride 119 mMol/L (98-107); Creatinine (Component) 1.3 mg/dL (0.6-1.3); Estimated Creatinine Clearance 72.7 mL/min (>60); Globulin 2.3 gm/dL (2.3-3.5); Glucose 116 mg/dL (74-106); Osmolality,Calculated 305 (275-295); Potassium 3.2 mMol/L (3.4-5.1); Sodium 153 mMol/L (136-145); Thyroid Stimulating Hormone 2.05 uIU/mL (0.55-4.78); Total Protein 6.5 gm/dL (5.7-8.2); eGFR > 60 See Note
[2024-07-31 04:23] LABS: Troponin I 0.461 ng/mL (0.0-0.045)
[2024-07-31] MEDS: HEPARIN SOD INJ 5000 UNIT/ML VIAL SC ×3 (05:01→21:02)
[2024-07-31] MEDS: PIPER/TAZO INJ 4.5 GM in SODIUM CHLORIDE 0.9% (POP) 100 ML IV ×2 (05:01→15:02)
--- NOTE | 2024-07-31 07:38 | ESPR_ITS ---
<Statement entered by Tim Brandon MD - 08/01/24 07:25> I discussed with and supervised the design engineering intern physician involved in the care of this patient. Patient assessment and plan was discussed with entire medicine team, including my attending. I agree with the assessment and plan as documented by design engineering intern doctor. Patient care was discussed with my attending physician Dr. Erica Brandon, PGY-2 Documentation for date of: 07/31/24 Subjective Subjective Interval history: No acute overnight events. Denies fever, chills, headaches, chest pain, sob, cough, GI or urinary symptoms. On exam, appeared agitated, initially wanted to AMA, but was convinced to stay. Troponin peaked at 0.67, EKG showing nonspecific ST changes with possible ST depression, remained asymptomatic without chest pain, palpitations, ASPIRIN was started, cardiology on board. LFTs overall improving. Lactic acid resolved. Continued on ANTIBIOTICS for pneumonia. Exam Vital Signs Temp Pulse Resp BP Pulse Ox O2 Del Method 97.7 F 103 H 14 145/101 H 99 Room Air 07/31/24 04:00 07/31/24 06:59 07/31/24 06:59 07/31/24 04:00 07/31/24 04:00 07/31/24 04:00 Narrative Exam General: Confused, AO x 3, slightly aggressive but not combative, Eyes: PERRL, EOMI. Anicteric, vision grossly intact. Ears: No ear discharge, Hearing grossly intact. Nose: No nasal discharge. Mouth/Throat: Dry mucous membranes, no redness, no lesions. Neck: Neck supple, non-tender, no cervical lymphadenopathy. Lungs: Clear JANEE to auscultation and percussion, No accessory muscle use. Cardio: Normal S1/S2, regular rhythm, no murmurs, no JVD Abdomen: Soft, non-tender, no palpable masses, peristalsis present, no guarding or rebound. Extremities: Symmetrical, no significant deformities, no peripheral edema , non-tender, peripheral pulses presents. Skin: No rashes, no lesions, warm to touch. Neuro: flight of idea, appears in mild distress. Objective Labs 08/01/24 05:14 08/01/24 05:14 Labs: Laboratory Results - last 24 hr 07/30/24 07/30/24 07/30/24 18:52 19:47 19:56 WBC 19.2 H RBC 6.21 H Hgb 18.6 H* Hct 52.6 MCV 85 MCH 30.0 MCHC 35.4 RDW Std Deviation 43.0 Plt Count 330 Neut % (Auto) 87 H Lymph % (Auto) 4 L Bates % (Auto) 8 Eos % (Auto) 0 Baso % (Auto) 0 Neut # (Auto) 16.8 H Lymph # (Auto) 0.7 L Bates # (Auto) 1.6 H Eos # (Auto) 0.0 Baso # (Auto) 0.1 Immature Gran # (Auto) 0.09 H Absolute Nucleated RBC 0.00 Immature Gran % 1 H Nucleated RBC % 0 PT 11.3 INR 1.0 APTT 22.9 Sodium 153 H Potassium 4.3 Chloride 111 H Carbon Dioxide 18.1 L Anion Gap 24 H BUN 25 H Creatinine 3.2 H Estim Creat Clear Calc 29.5 L eGFR 24 L BUN/Creatinine Ratio 8 L Glucose 186 H Calculated Osmolality 312 H Lactic Acid 8.1 H* Calcium 11.5 H Corrected Calcium 11.5 H Magnesium 2.9 H Total Bilirubin 0.6 AST 92 H ALT 232 H Alkaline Phosphatase 193 H Ammonia < 10 L Total Creatine Kinase 456 H Troponin I 0.108 H* B-Natriuretic Peptide 50 Total Protein 9.4 H Albumin 6.0 H Globulin 3.4 Albumin/Globulin Ratio 1.8 Procalcitonin 0.51 H TSH Ur Collection Type Catheter Urine Color Yellow Urine Clarity Turbid A Urine pH 6.0 Ur Specific Custer 1.022 Urine Protein 1+ A Urine Glucose (UA) Negative Urine Ketones Negative Urine Blood Negative Urine Nitrite Negative Urine Bilirubin Negative Urine Urobilinogen (Auto) Negative Ur Leukocyte Esterase Negative Urine RBC 9 H Urine WBC 2 Ur Squamous Epith Cells < 1 Ur Transition Epith Cell 1 Urine Bacteria Rare Cellular Casts < 1 Hyaline Casts < 1 Urine Sperm Present A Urine Opiates Screen Negative Urine Fentanyl Screen Negative Ur Barbiturates Screen Negative U Amphetamin/Meth Scrn Positive A U Benzodiazepines Scrn Negative U Cocaine Metab Screen Negative U Marijuana (THC) Screen Negative Ethyl Alcohol < 3.0 07/30/24 07/31/24 07/31/24 21:12 00:17 03:27 WBC 13.7 H D RBC 4.69 Hgb 14.2 D Hct 40.3 L D MCV 86 MCH 30.3 MCHC 35.2 RDW Std Deviation 43.5 Plt Count 221 D Neut % (Auto) 75 Lymph % (Auto) 12 Bates % (Auto) 12 Eos % (Auto) 0 Baso % (Auto) 0 Neut # (Auto) 10.3 H Lymph # (Auto) 1.6 Bates # (Auto) 1.7 H Eos # (Auto) 0.0 Baso # (Auto) 0.1 Immature Gran # (Auto) 0.04 H Absolute Nucleated RBC 0.00 Immature Gran % 0 Nucleated RBC % 0 PT INR APTT Sodium 153 H Potassium 3.2 L D Chloride 119 H Carbon Dioxide 20.3 Anion Gap 14 BUN 16 Creatinine 1.3 D Estim Creat Clear Calc 72.7 eGFR > 60 BUN/Creatinine Ratio 12 Glucose 116 H D Calculated Osmolality 305 H Lactic Acid 6.3 H* 3.3 H 1.7 Calcium 8.7 D Corrected Calcium 8.7 D Magnesium 2.0 Total Bilirubin 0.5 AST 63 H ALT 140 H Alkaline Phosphatase 127 H D Ammonia Total Creatine Kinase Troponin I 0.179 H* 0.461 H* D B-Natriuretic Peptide Total Protein 6.5 Albumin 4.2 D Globulin 2.3 Albumin/Globulin Ratio 1.8 Procalcitonin TSH 2.05 Ur Collection Type Urine Color Urine Clarity Urine pH Ur Specific Custer Urine Protein Urine Glucose (UA) Urine Ketones Urine Blood Urine Nitrite Urine Bilirubin Urine Urobilinogen (Auto) Ur Leukocyte Esterase Urine RBC Urine WBC Ur Squamous Epith Cells Ur Transition Epith Cell Urine Bacteria Cellular Casts Hyaline Casts Urine Sperm Urine Opiates Screen Urine Fentanyl Screen Ur Barbiturates Screen U Amphetamin/Meth Scrn U Benzodiazepines Scrn U Cocaine Metab Screen U Marijuana (THC) Screen Ethyl Alcohol Quality Measures Quality Measures sepsis Current suspected stage: ruled out Possible source: unknown Blood cultures ordered: yes Antibiotic ordered: Yes Assessment & Plan Assessment Current Active Medications: Generic Name Dose Route Start Last Admin Trade Name Freq PRN Reason Stop Dose Admin Acetaminophen 650 mg 07/30/24 21:29 Acetaminophen Supp 650 Mg Supp WA 08/29/24 21:28 Q6HR PRN Fever > 100.4 Heparin Sodium (Porcine) 5,000 unit 07/30/24 22:00 07/31/24 05:01 Heparin Sod Inj 5000 Unit/Ml Vial SC 08/13/24 21:59 5,000 unit Q8HR MARIA G Administration Sodium Chloride 1,000 mls @ 75 mls/hr 07/30/24 21:30 07/30/24 22:35 Ns IV 07/31/24 10:49 75 mls/hr .[id number] MARIA G Administration Piperacillin Sod/Tazobactam 100 mls @ 200 mls/hr 07/30/24 22:00 07/31/24 05:01 Sod 4.5 gm/ Sodium Chloride IV 08/06/24 21:59 200 mls/hr Q8HR MARIA G Administration Vancomycin/Sodium Chloride 200 mls @ 120 mls/hr 07/31/24 10:00 Vancomycin/Ns 1 Gm Ivpb IV 08/07/24 09:59 Q12H MARIA G Protocol Labetalol HCl 10 mg 07/30/24 21:36 Labetalol Inj 5 Mg/Ml Vial 20 Ml IVP 08/29/24 21:35 Q6H PRN SBP>180, DBP>105,Hold if HR<70 Ondansetron HCl 4 mg 07/30/24 21:29 Ondansetron Inj 2 Mg/Ml Inj 2 Ml IVP 08/29/24 21:28 Q6H PRN NAUSEA OR VOMITING Protocol Pharmacy Consult 1 each 07/30/24 21:35 Vancomycin Pharmacy To Dose 1 Each Each IV 08/29/24 21:34 QDAY PRN RX Plan 38-year-old homeless male with PMHx of schizophrenia, bipolar disorder, methamphetamine use was admitted to the hospital on 07/30/2024 for acute encephalopathy. Acute encephalopathy in settings of: Meth use UTI likely GNR Community acquired pneumonia likely GNR Hx of schizophrenia and bipolar disorder Severe dehydration Lactic acidosis, type A 2/2 dehydration Presented for medical clearance by police for tachycardia, found encephalopathic in the ED. Head CT was CXR showed no acute pathology. U tox positive for METH. UA showed some bacteria. CT abdomen showed mild left base pneumonia and moderate parenchymal scar formation. Labs showing signs of dehydration including hyponatremia, lactic acidosis, elevated creatinine kinase, Hgb/WBC concentration. Completed 1 day of ZOSYN and VANCOMYCIN, continued on IV fluids. Symptoms improved, ANO x 3. Lactic acidosis resolved. ? Continue AZITHROMYCIN and CEFTRIAXONE (07/30 to present) ? Encourage oral hydration ? Pending pancultures ? Daily labs NSTEMI, likely type II in settings of dehydration Troponin peaked at 0.627, EKG showed sinus rhythm, deep Q waves noted in leads V2 with ST depression in lead leads II and III. Asymptomatic, no chest pain, dizziness or palpitations. Started ASPIRIN loading dose. ? Continue ASPIRIN 81 mg daily ? Pending cardiology recommendations ? Maintain K > 4.0 and Mg > 2.0 Hypernatremia 2/ dehydration Sodium 153, improved to 145 with IVF. ? Daily labs Prerenal SAULO in settings of dehydration (resolved) High anion gap metabolic acidosis, lactic acidosis vs uremic (resolved) Admission creatinine of 3.2 from 1.0 on 05/23 Anion gap of 25 and bicarb of 18.1, currently anion gap 14. ? Daily labs ? Renally dose meds, avoid overdiuresis and NEPHROTOXINS ? Daily CMP HTN Presented with hypotension, which resolved with 1 dose HYDRALAZINE. Currently normotensive, normal cardiac. ? LABETALOL PRN on board Hypokalemia (resolved) Erythrocytosis (resolved) Hypercalcemia (reseovled) Hypomagnesemia (resolved) Mild transaminitis (improving) Likely concentrational in settings of dehydration Improved with IVF ? Daily labs Health maintenance Diet: Cardiac GI prophylaxis: Not indicated DVT prophylaxis: HEPARIN subcu Antibiotics: CEFTRIAXONE, AZITHROMYCIN CODE STATUS: Full code Disposition: Pending cardiology workup, manley culture. Case was discussed with attending physician and senior resident. Abigail Ordoñez DO PGYI Attending Provider Attestation/Addendum I have discussed and was present for the essential components of the history, physical examination, diagnosis, and treatment plan with the resident. I agree with the patient's care as documented by the resident and amended herein by me. Don Maldonado DO. Although this document has been carefully reviewed, there may still be some phonetic and other typographical errors. These errors are purely grammatical due to imperfections in the software program and should not be construed in any way to compromise the substance of the patient's medical care during this visit.
[2024-07-31 07:48] LABS: Lactate (Lactic Acid) 1.4 mMol/L (0.4-2.0)
[2024-07-31] MEDS: Magnesium Sulfate 2 GM Ivpb 2 GM/50 ML BAG IV (08:31)
[2024-07-31] MEDS: POTASSIUM CHL 10 mEq IVPB 10 MEQ/100 ML BAG 100 MEQ IV ×4 (08:31→12:13)
[2024-07-31] MEDS: SODIUM CHLORIDE 0.45 % 1,000 ML 75 ML IV (08:38)
[2024-07-31] MEDS: POTASSIUM CHLORIDE 20 mEq TABCR 40 MEQ PO (08:49)
[2024-07-31 11:07] LABS: Troponin I 0.627 ng/mL (0.0-0.045)
--- NOTE | 2024-07-31 11:25 | EKG_ITS ---
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
--- NOTE | 2024-07-31 11:51 | PC.SS ---
Addendum entered by Edna Starr 07/31/24 15:18: SS and [employer] met with patient to discuss initial assessment. Patient confirmed name, and location. Patient states he's been homeless. He states he was previously at the [facility]. He states he can return. Patient was positive for meth. He does not have any family/friends to provide contact information. Patient confirmed receives food stamps and receives social security income. Patient has not seen a p.c.p. or any physician for his mental health-Schizophrenia. Patient is not on a 51/50 hold. He was cited out by [place] police department. Patient can be discharged once medically stable to the homeless [facility]ci or community. SS provided a list of community resources which includes homeless shelters, mental health facilities, transportation assistance and the [facility]. SS will provide appropriate clothing attire to patient. Original Note: SS received a call indicating that patient was wanting to leave AMA. SS reviewed chart which showed patient is homeless and was recently released from correction and found wandering the streets. Patient was positive tox for meth. Notes indicate hx: Schizophrenia and bipolar. Physician re-assessed patient and patient is alert but coming down from meth use. Patient has agreed to stay. SS and [employer] to evaluate patient and provide additional community resources this afternoon. It was noted that patient is not on a 5150 hold.
[2024-07-31] MEDS: ALBUTEROL/IPRATROPIUM (Duoneb) RT SOL 3 ML NEBU INH (12:31)
[2024-07-31] MEDS: DEXTROSE IV (16:10)
[2024-07-31] MEDS: [UNRECOGNIZED DRUG - OTHER] IV (16:10)
[2024-07-31 16:21] LABS: Sodium 145 mMol/L (136-145)
[2024-07-31 16:22] LABS: Troponin I 0.464 ng/mL (0.0-0.045)
[2024-07-31] MEDS: Aspirin 325 MG TABLET PO (16:25)
--- NOTE | 2024-07-31 17:10 | ESCONSULT_ITS ---
HPI Data of Consult Requesting Physician: Dave aMldonado DO Admitting Provider: Dima Yi MD Attending Provider: Dave Maldonado DO Primary Care Provider: Physician No Primary/Family Consult Narrative History of present illness: CC: chest pain Patient is a 38-year-old male with a past medical history of schizophrenia, bipolar disorder, substance use disorder with methamphetamine who denied any other chronic medical history. Patient presented to the emergency room on 07/30/2024 initially brought in for medical clearance by the [place] police department with HR 160s. Patient complaining of typical left chest pain radiating to the right and left. Patient stated pain is dull. Worsens with deep inspiration. Chest pain worsens to palpation. Patient stated atypical chest pain began shortly after consuming methamphetamine, patient unable to quantify amount. Denied palpitations. Patient stated this is never happened before. Patient denied cardiac history including hypertension or hyperlipidemia. Patient denied dizziness blurry vision. Patient was alert and oriented x 3. Patient denied any recent sick contacts. Patient denied nausea or emesis. Patient denied any or fevers. ER Course: Vitals BP 139/97, heart rate 163, respiratory rate 17, SpO2 97% on room air CBC (07/30/2024): WBC 19.2, hemoglobin 18.6, hematocrit 52.6, MCV 85. Procalcitonin 0.51 CMP: Hyponatremia sodium 153, potassium 4.3, chloride 111; metabolic acidosis lactic 8.1, 3.3, down trended to 1.4, SAULO noted BUN 25 creatinine 3.2 Transaminitis AST 92, ALT 232 ammonia less than 10 Troponin 0.108, 0.179, 0.461, 0.627, 0.464 (down trended) EKG: Sinus tach he heart rate 135, deep Q waves noted in leads V2 with ST depression in lead leads II and III. Head CT unremarkable, chest x-ray unremarkable Blood Culture: Obtained. Cardiology consulted for troponinemia and atypical chest pain PMH: Schizophrenia Bipolar Substance Use Disorder Past Surgical History: None Past Family History: Unsure of family history Home Medication: No home medication Social History: Methamphetamine Marijuana Denied alcohol use Denied IV use Allergies: None Code Status: Full Code cc:: cc: Dave Maldonado DO Review of Systems Review of Systems Narrative Review of Systems: General appearance: NO weight change, NO fatigue, NO weakness, NO fever, NO chills, NO night sweats, No cough Skin: NO rash, NO itching, NO sores, NO moles HEENT: NO Trauma, NO nausea, NO vomiting, NO visual changes, NO blurry vision, NO double vision, NO tinnitus, NO vertigo, NO ear discharge, NO rhinorrhea, NO stuffiness, NO sneezing, NO allergy, NO epistaxis. NO Hoarseness, NO sore throat, NO swollen neck. Cardiac: NO Palpitations, NO dyspnea on exertion, NO orthopnea, NO paroxysmal nocturnal dyspnea, NO edema. CHEST PAIN Respiratory: NO Shortness of Breath, NO Wheezing, NO Cough, NO Sputum, NO hemoptysis GI:NO appetite, NO nausea, NO vomiting, NO dysphagia, NO changes in bowel frequency, NO stool color, NO diarrhea, NO constipation, NO hemetemesis, NO hemorrhoids, NO melena, NO hematechezia, NO abdominal pain, NO jaundice Renal: NO frequency, NO hesitancy, NO urgency, NO hematuria, NO nocturia, NO incontinence MSK: NO muscle weakness, NO gout, NO arthritis, NO muscle stiffness Neuro: NO headaches, NO tremors, NO weakness, NO paralysis, NO seizures, NO loss of consciousness, NO numbness. Hem: NO anemia, NO easy bruising/bleeding, NO petechiae, NO purpura Endo: NO heat/cold intolerance, NO excessive sweating, NO polyuria, NO polydipsia, NO polyphagia, NO thyroid problems, NO diabetes Pysch: NO mood, NO anxiety, NO depression Exam Vital Signs Temp Pulse Resp BP Pulse Ox O2 Del Method 98.5 F 82 18 121/84 99 Room Air 07/31/24 12:00 07/31/24 12:35 07/31/24 12:35 07/31/24 12:00 07/31/24 12:35 07/31/24 12:00 Narrative Exam General Appearance: Alert & Oriented X3, thin male who is lying in bed in no acute distress HEENT: Skull symmetrical and atraumatic. Conjunctivae pink and moist. External ear without lesion or discharge. Straight, nares patient, mucosa pink, no discharge. Cardio: Normal Rate and Rhythm with S1 and S2 heart sounds. No murmurs or extra heart sounds auscultated. No bruits on carotid auscultation. No peripheral edema or cyanosis. Lungs: Symmetric with good expansion. Chest and back non-tender. Breath sounds vesicular without crackles, wheezing or rhonchi Abdomen: Non-tender, Non-distended, Normal Reactive Bowel Sounds Neuro: Alert, cooperative, oriented to person, place, and time. Speech clear. CN grossly intact. Upper motor strength 5/5 and Lower motor strength 5/5. Sensation intact. Results Labs 07/31/24 03:27 07/31/24 15:23 Labs: Short CBC 07/30/24 07/31/24 Range/Units 18:52 03:27 WBC 19.2 H 13.7 H D (3.8-10.6) Thou/mm3 Hgb 18.6 H* 14.2 D (13.5-16.0) g/dL Hct 52.6 40.3 L D (41.0-53.0) % Plt Count 330 221 D (140-440) Thou/mm3 BMP 07/30/24 07/31/24 07/31/24 18:52 03:27 15:23 Sodium 153 H 153 H 145 Potassium 4.3 3.2 L D Chloride 111 H 119 H Carbon Dioxide 18.1 L 20.3 BUN 25 H 16 Creatinine 3.2 H 1.3 D Glucose 186 H 116 H D Calcium 11.5 H 8.7 D Cardiac Enzymes 07/30/24 07/30/24 07/30/24 Range/Units 18:52 19:56 21:12 Total Creatine Kinase 456 H (34-171) U/L Troponin I 0.108 H* 0.179 H* (0.0-0.045) ng/mL 07/31/24 07/31/24 07/31/24 Range/Units 03:27 10:13 15:23 Total Creatine Kinase (34-171) U/L Troponin I 0.461 H* D 0.627 H* 0.464 H* (0.0-0.045) ng/mL Liver Function 07/30/24 07/31/24 Range/Units 18:52 03:27 Total Bilirubin 0.6 0.5 (0.3-1.2) mg/dL AST 92 H 63 H (0-34) U/L ALT 232 H 140 H (10-49) U/L Alkaline Phosphatase 193 H 127 H D (46-116) U/L Albumin 6.0 H 4.2 D (3.5-5.0) gm/dL Urine 07/30/24 Range/Units 19:47 Urine Color Yellow (Lt Yel-Yel) Urine Clarity Turbid A (Clear/Hazy) Urine pH 6.0 (5.0-7.0) Ur Specific Inland 1.022 (1.001-1.035) Urine Protein 1+ A (Neg - Trace) Urine Glucose (UA) Negative (Negative) Quality Measures Quality Measures sepsis Current suspected stage: sepsis Possible source: unknown Blood cultures ordered: yes Antibiotic ordered: Yes Medications Home Medications and Allergies Home Medications ?Medication ?Instructions ?Recorded ?Confirmed ?Type No Known Home Medications 01/23/2004/22 History Allergies Allergy/AdvReac Type Severity Reaction Status Date / Time No Known Allergies Allergy Verified 04/07/23 08:14 Visit Medications Acetaminophen (Acetaminophen Supp 650 Mg Supp) 650 mg WI Q6HR PRN PRN Reason: Fever > 100.4 Stop: 08/29/24 21:28 Albuterol/Ipratropium (Albuterol/Ipratropium (Duoneb) Rt She 3 Ml Nebu) 3 ml INH Q6HRRT [facility] Stop: 08/30/24 12:59 Last Admin: 07/31/24 12:31 Dose: 3 ml Heparin Sodium (Porcine) (Heparin Sod Inj 5000 Unit/Ml Vial) 5,000 unit SC Q8HR [facility] Stop: 08/13/24 21:59 Last Admin: 07/31/24 15:03 Dose: 5,000 unit Piperacillin Sod/Tazobactam (Sod 4.5 gm/ Sodium Chloride) 100 mls @ 200 mls/hr IV Q8HR [facility] Stop: 08/01/24 09:00 Last Infusion: 07/31/24 15:02 Dose: 200 mls/hr Vancomycin/Sodium Chloride (Vancomycin/Ns 1 Gm Ivpb) 200 mls @ 120 mls/hr IV Q12H [facility]; Protocol Stop: 08/01/24 09:00 Last Admin: 07/31/24 09:58 Dose: 120 mls/hr Ceftriaxone Sodium/Dextrose (Rocephin/D5w 1gm Iv Premix) 1 gm in 50 mls @ 100 mls/hr IV QDAY [facility] Stop: 08/08/24 08:59 Azithromycin 500 mg/ Sodium (Chloride) 250 mls @ 250 mls/hr IV QDAY MARIA G Stop: 08/08/24 08:59 Dextrose/Sodium Chloride (D5-1/4ns) 1,000 mls @ 178 mls/hr IV .Q5H38M MARIA G Stop: 08/01/24 07:36 Last Admin: 07/31/24 16:10 Dose: 178 mls/hr Labetalol HCl (Labetalol Inj 5 Mg/Ml Vial 20 Ml) 10 mg IVP Q6H PRN PRN Reason: SBP>180, DBP>105,Hold if HR<70 Stop: 08/29/24 21:35 Ondansetron HCl (Ondansetron Inj 2 Mg/Ml Inj 2 Ml) 4 mg IVP Q6H PRN; Protocol PRN Reason: NAUSEA OR VOMITING Stop: 08/29/24 21:28 Pharmacy Consult (Vancomycin Pharmacy To Dose 1 Each Each) 1 each IV QDAY PRN PRN Reason: RX Stop: 08/31/24 09:00 Discontinued Medications Aspirin (Aspirin 325 Mg Tablet) 325 mg PO X1 ONE Stop: 07/31/24 14:27 Last Admin: 07/31/24 16:25 Dose: 325 mg Hydralazine HCl (Hydralazine Inj 20 Mg/Ml Vial) 10 mg IVP X1 ONE Stop: 07/30/24 19:41 Last Admin: 07/30/24 19:55 Dose: 10 mg Sodium Chloride (Ns) 1,000 mls @ 999 mls/hr IV .Q1H1M ONE Stop: 07/30/24 19:33 Last Infusion: 07/30/24 20:29 Dose: Infused Sodium Chloride (Ns) 1,000 mls @ 999 mls/hr IV .Q1H1M ONE Stop: 07/30/24 20:35 Last Infusion: 07/30/24 21:32 Dose: Infused Ceftriaxone Sodium/Dextrose (Rocephin/D5w 1gm Iv Premix) 1 gm in 50 mls @ 100 mls/hr IV X1 ONE Stop: 07/30/24 20:06 Last Infusion: 07/30/24 20:29 Dose: Infused Sodium Chloride (Ns) 500 mls @ 999 mls/hr IV .Q31M ONE Stop: 07/30/24 20:08 Last Infusion: 07/30/24 22:30 Dose: Infused Sodium Chloride (Ns) 1,000 mls @ 999 mls/hr IV .Q1H1M ONE Stop: 07/30/24 22:02 Last Infusion: 07/30/24 22:46 Dose: Infused Sodium Chloride (Ns) 1,000 mls @ 75 mls/hr IV .[id number] [facility] Stop: 07/31/24 10:49 Last Admin: 07/30/24 22:35 Dose: 75 mls/hr Vancomycin/Sodium Chloride (Vancomycin/Ns 1 Gm Ivpb) 200 mls @ 120 mls/hr IV X1 ONE Stop: 07/30/24 23:54 Last Admin: 07/31/24 00:56 Dose: 120 mls/hr Sodium Chloride (Ns 0.45%) 1,000 mls @ 75 mls/hr IV .[id number] [facility] Stop: 08/30/24 07:44 Last Admin: 07/31/24 08:38 Dose: 75 mls/hr Potassium Chloride (Kcl Ivpb) 10 meq in 100 mls @ 100 mls/hr IV Q1H [facility] Stop: 07/31/24 12:14 Last Admin: 07/31/24 12:13 Dose: 100 mls/hr Magnesium Sulfate (Magnesium Sulfate Ivpb) 2 gm in 50 mls @ 25 mls/hr IV X1 ONE Stop: 07/31/24 10:08 Last Admin: 07/31/24 08:31 Dose: 25 mls/hr Sodium Chloride (Ns 0.45%) 1,000 mls @ 270 mls/hr IV .Q3H43M [facility] Stop: 08/30/24 11:55 Dextrose/Sodium Chloride (D5-1/4ns) 500 mls @ 178 mls/hr IV .Q2H49M [facility] Stop: 08/01/24 10:09 Potassium Chloride (Potassium Chloride 20 Meq Tabcr) 40 meq PO X1 ONE Stop: 07/31/24 08:10 Last Admin: 07/31/24 08:49 Dose: 40 meq Sodium Chloride (Sodium Chloride Rt 10% 15 Ml Nebu) 5 ml INH X1 ONE Stop: 07/31/24 10:47 Assessment & Plan Plan Patient is a 38-year-old male with a past medical history of schizophrenia, bipolar disorder, substance use disorder with methamphetamine who was admitted on 07/30/2024 acute encephalopathy on admission. # NSTEMI Type II - troponin elevelation mostly from the SAULO , sepsis and substance abuse - supply demand mismatch. #Atypical chest pain Patient presented with atypical chest pain on admission and now heart rate of 163 after consuming given amount of methamphetamine. Patient stated that this was the first time he experienced chest pain secondary to substance use disorder. Troponin noted to be 0.118 on admission and since then up trended to 0.627 and subsequently decreased to 0.464. Troponinemia likely in the setting of NSTEMI type II demand ischemia from methamphetamine use versus NSTEMI type I vs Less likely secondary to HI as no ST elevation noted on EKG with atypical chest pain. EKG noted for deep Q waves and T wave inversions but no reciprocal changes noted. Diagnostics EKG: R waves V2, non specific T waves II and III, sinus tachycardia. Troponin 0.108, 0.179, 0.461, 0.627, 0.464 Plan -Echo -Aspirn 81 mg, started by primary team - DC troponin trending - service provider #SAULO, improving Likely pre-renal in the setting of poor oral intake vs intrinsic injury given BUn/Cr 8-->improved 12. CK 456 vs CKD as there is no previous labs on file. Total NS given in ER 3.5. plan -avoid nephrotoxins -renally dose medication -consider fluid resuscitation #Acute encephalopathy, resolved. Acute encephalopathy likely secondary metabolic conditions given methamphamine use disorder vs metabolic acidosis in the setting lactic acid. Alert and Oriented x 3. CT Head: Negative Lactic 8.1-->1.4 Plan -no acute intervention, treat underlying metabolic condition Hypovolemia, Hypernatremia, improved Likely in the setting of SAULO given hypovolemia and worsening Creatine function vs less likley secondary to diarrhea as patient denied any past symptoms. Free water deficient 3.8 Liters. Give first half in first 24 hours. Repeat Na 145. Plan -NS 3.8 L ER Metabolic Acidosis, High anion gap, resolved Metabolic acidosis in the setting of lactic acidosis from demand ischemia in the setting of SAULO. Plan -ER 3.5 Liters Transaminitis In the setting of SAULO and hypoperfusion vs hepatitis vs alcohol use disorder but less likely as alcohol negative on utox. Consider hepatitis panel. AST 92/ALT 232-->AST 63/ALT 140 (07/31/2024) Plan -continue to trend -avoid hepatoxicity #Substance Use Diorder, Meth use Alert and Orietated, last use 07/30/2024, unknown amount. Plan -No acute intervention #SIRs On admission, patient met SIRs criteria with Tachyardia and elevated WBC count in the setting of substance use disorder w/ meth vs less likely infectious as UA and Chest x-ray unremarkable Plan -Ceftriaxone and Azithrmoymcin (08/01/2024--) -Blood cultures Health Maintenance: Disp: Pt is currently admitted to floors for further management of acute encephalopathy and SAULO, awaiting renal improvement & Echo FEN: None DVT: on subQ heparin Code: Full Code - The patient's plan was discussed with attending Dr. Claire Lanza MD PGY1 Internal Medicine Attending Provider Attestation/Addendum I have personally seen and examined the patient separately on the above date of service and discussed the plan of care with the resident. I reviewed the resident Dr. Crystal Lanza consultation progress note and agree with the resident findings and plan in the note above and have also edited the documentation to reflect my findings and plan. A 38-year-old male with a past medical history of substance abuse including methamphetamine, schizophrenia, bipolar disorder not on any medication and does not visit doctors brought to the ED the [place] [employer] for medical clearance as his heart rate was between 130 to 160 bpm. Patient also complained of some type pain in shortness of breath. Chest pain acute atypical with radiating to the right side of the chest. Dull pain and reproducible on examination. Patient denies any other cardiac complaints for any palpitations or orthopnea or PND or dizziness or syncope or fall or leg swelling. The emergency department EKG did show sinus tachycardiia with nonspecific ST-T changes, with nonspecific T wave inversions. Initial troponin was 0.108 and the repeat was 0.179, 0.461 and peaked at 0.627 and now downtrending at 0.464. Patient had acute kidney injury with a creatinine of 3.2 and a BUN of 25. AST ALT was elevated at 92 and. Lactate was elevated at 3.1. Procalcitonin 0.51, hemoglobin 18.6 WBC 19.2 with left shift. Head CT was negative. 6 history without any acute pathology. Cardiology was consulted for the elevated troponins in the chest pain. Assessment and plan: 1. NSTEMI type II-elevated troponins mostly secondary to supply/demand mismatch in the setting of SAULO, sepsis, substance abuse 2. Atypical chest pain 3. Acute kidney injury 4. SIRS/sepsis 5. Lactic acidosis 6. Abnormal LFTs 7. Metabolic encephalopathy 8. Substance abuse including methamphetamine use Chest pain is completely atypical and EEG radiating to the right, reproducible. Troponins peaked at 0.67 and now downtrending. EKG with sinus tachycardia with with nonspecific ST-T changes. Patient has multiple reasons for elevated troponins including the SAULO, SIRS, sepsis and substance abuse. No need to trend any further troponins. Repeat an EKG. No need of any heparin drip. Echocardiogram to rule out any regional wall motion abilities and evaluate LV function or functional function. Check TSH A1c and lipid profile for further cardiac restratification. Patient counseled about drug abuse including methamphetamine abuse and instructed to quit completely. Acute kidney injury with IV fluids and creatinine improved from 3.2->1.3 Monitor for any withdrawals from the substance abuse. Management of rest of the medical conditions as per primary team and other consultants. Thank you for the consult and allowing me to participate in the care of the patient. Cardiology will continue to follow. Laci Rangel M.D. Interventional Cardiology
--- NOTE | 2024-07-31 19:59 | ECHO_ITS ---
Transthoracic Echo Report Ht (in): 70 Wt (lb): 152 Exam Location: Echo Lab Status: Inpatient Vice President Diversity: Alem Kirkpatrick Indications: Procedure Performed: BP: 104 / 62 HR: 75 Technical Quality: Adequate MEASUREMENTS (Male / Female) Normal Values 2D ECHO LV Diastolic Diameter PLAX 5.0 cm 4.2 - 5.9 / 3.9 - 5.3 cm LV Systolic Diameter PLAX 3.8 cm IVS Diastolic Thickness 0.8 cm 0.6 - 1.0 / 0.6 - 0.9 cm LVPW Diastolic Thickness 1.0 cm 0.6 - 1.0 / 0.6 - 0.9 cm LV Relative Wall Thickness 0.4 LVOT Diameter 2.1 cm DOPPLER AV Peak Velocity 156.0 cm/s AV Peak Gradient 9.7 mmHg AI Peak Velocity 284.0 cm/s AI Peak Gradient 32.3 mmHg AI Pressure Half Time 537.0 ms LVOT Peak Velocity 95.1 cm/s LVOT Peak Gradient 3.6 mmHg AV Area Cont Eq pk 2.1 cm? MV Area PHT 1.9 cm? Mitral E Point Velocity 53.4 cm/s Mitral A Point Velocity 37.8 cm/s Mitral E to A Ratio 1.4 LV E' Lateral Velocity 9.3 cm/s Mitral E to LV E' Lateral Ratio 5.7 LV E' Septal Velocity 8.2 cm/s Mitral E to LV E' Septal Ratio 6.5 TR Peak Velocity 168.7 cm/s TR Peak Gradient 11.4 mmHg PV Peak Velocity 90.5 cm/s PV Peak Gradient 3.3 mmHg FINDINGS Left Ventricle Normal left ventricular size, wall thickness, systolic function. There is an apical mobile thrombus in the left ventricle measuring 2.70cm x 2.36cm with . Normal left ventricular diastolic filling pattern for age. The ejection fraction is visually estimated at 55%. Right Ventricle The right ventricle is normal in size and systolic function. The estimated right ventricular systolic pressure, 11 mmHg. Left Atrium The left atrium is normal by two-dimensional, color flow and Doppler imaging with no structural abnormalities, no thrombus formation present. Right Atrium The right atrium is normal by two-dimensional imaging, color flow and Doppler imaging with no structural abnormalities, no thrombus formation present. Atrial Septum The interatrial septum appears normal with no evidence of a shunt. Aorta The aorta is normal by two-dimensional, color flow and Doppler interrogation. Mitral Valve The mitral valve is normal by two-dimensional, color flow and Doppler interrogation. There is mild mitral regurgitation. Aortic Valve The aortic valve is sclerotic with mild aortic regurgitation. Tricuspid Valve The tricuspid valve is normal by two-dimensional, color flow and Doppler interrogation. There is mild tricuspid regurgitation. Pulmonic Valve The pulmonic valve is not well visualized. There is no significant pulmonic valve regurgitation. Vessels The pulmonary artery appears normal. The inferior vena cava pulmonary and hepatic veins appear normal. Pericardium The pericardium is normal by two-dimensional imaging. There is no significant pericardial effusion. CONCLUSIONS Indications: Elevated troponins and SAULO Normal liver size and low normal ejection fraction at around 45 to 50%. Apical akinesis noted with apical thinning indicating possible old infarct. Well-organized echogenic structure noted at the LV apex with smooth margins measuring 2.4 x 2.3 cm - mostly chronic LV thrombus given the apical akinesis and apical thinning. Normal RV size and function. Normal RVSP Mild MR, mild AI and trace to mild TR. No pericardial effusion Laci Rangel (Electronically Signed) Final Date: 02 August 2024 01:05
[2024-08-01] VITALS (9 sets, daily range): BP systolic 90–110; BP diastolic 56–64; PULSE 62–106; RESP 14–97; TEMP 36.1–36.4; O2SAT 95–98
[2024-08-01] MEDS: HEPARIN SOD INJ 5000 UNIT/ML VIAL SC ×2 (05:10→14:01)
[2024-08-01 05:42] LABS: Basophils # (Auto) 0.1 Thou/mm3 (0.0-0.2); Basophils % (Auto) 1 % (0-2.5); Eosinophils # (Auto) 0.3 Thou/mm3 (0.0-0.5); Eosinophils % (Auto) 3 % (0-10); Hematocrit 35.2 % (41.0-53.0); Hemoglobin 12.1 g/dL (13.5-16.0); Immature Granulocytes % (Auto) 0 % (0-0); Immature Granulocytes Auto 0.02 Thou/mm3 (0.00-0.00); Lymphocytes # (Auto) 2.1 Thou/mm3 (1.0-4.8); Lymphocytes % (Auto) 23 % (10-50); Mean Corpuscular HGB Conc 34.4 g/dl (31.0-37.0); Mean Corpuscular Hemoglobin 29.5 pg (25.0-35.0); Mean Corpuscular Volume 86 fL (80-100); Monocytes # (Auto) 0.9 Thou/mm3 (0.0-0.8); Monocytes % (Auto) 9 % (0-12); Neutrophils # (Auto) 6.1 Thou/mm3 (1.8-7.7); Neutrophils % (Auto) 64 % (37-80); Nucleated Red Blood Cell % 0 /100 WBC (0); Platelet Count 186 Thou/mm3 (140-440); RDW Standard Deviation 43.4 fL (35.1-43.9); White Blood Count 9.4 Thou/mm3 (3.8-10.6)
[2024-08-01 05:55] LABS: Alanine Aminotransferase 84 U/L (10-49); Albumin, Serum 3.5 gm/dL (3.5-5.0); Albumin/Globulin Ratio 1.8 (1.2-2.2); Alkaline Phosphatase 99 U/L (46-116); Anion Gap 9 (7-16); Aspartate Amino Transferase 48 U/L (0-34); BUN/Creatinine Ratio 17 Ratio (12-20); Bilirubin,Total 0.6 mg/dL (0.3-1.2); Blood Urea Nitrogen 12 mg/dL (9-23); Calcium 8.3 mg/dL (8.3-10.6); Calcium (Corrected) 8.7 mg/dL (8.5-10.1); Carbon Dioxide 24.6 mMol/L (20.0-31.0); Chloride 110 mMol/L (98-107); Creatinine (Component) 0.7 mg/dL (0.6-1.3); Estimated Creatinine Clearance 136.8 mL/min (>60); Glucose 92 mg/dL (74-106); Magnesium 1.7 mg/dL (1.6-2.6); Osmolality,Calculated 286 (275-295); Potassium 3.6 mMol/L (3.4-5.1); Sodium 144 mMol/L (136-145); Total Protein 5.5 gm/dL (5.7-8.2); eGFR > 60 See Note
[2024-08-01] MEDS: cefTRIAXone/D5w 1gm IV premix 1 GM/50 ML BAG IV (08:10)
[2024-08-01] MEDS: ASPIRIN EC 81 MG TABEC PO (08:10)
[2024-08-01 08:16] LABS: Glucose Estimated Average 94 mg/dL (80-131); Hemoglobin A1C 4.9 % Hgb (4.8-6.0)
--- NOTE | 2024-08-01 09:27 | PD.RESPRO ---
Documentation for date of: 08/01/24 Subjective Subjective Interval history: CC: chest pain Patient is a 38-year-old male with a past medical history of schizophrenia, bipolar disorder, substance use disorder with methamphetamine who denied any other chronic medical history. Patient presented to the emergency room on 07/30/2024 initially brought in for medical clearance by the [place] police department with HR 160s. Patient complaining of typical left chest pain radiating to the right and left. Patient stated pain is dull. Worsens with deep inspiration. Chest pain worsens to palpation. Patient stated atypical chest pain began shortly after consuming methamphetamine, patient unable to quantify amount. Denied palpitations. Patient stated this is never happened before. Patient denied cardiac history including hypertension or hyperlipidemia. Patient denied dizziness blurry vision. Patient was alert and oriented x 3. Patient denied any recent sick contacts. Patient denied nausea or emesis. Patient denied any or fevers. 07/31/2024: Cardiology consulted for troponinemia and atypical chest pain. 08/01/2024: No overnight events. Patient examined at bedside this morning. Patient denied chest pain or shortness of breath. No pain ilicited by deep palpation. Echo (07/31/2024): Noted to have thrombus, appearing organized, thus indicating chronic thrombus. [place] appears thin likely thrombus secondary to old LA. Patient will require life time anticoagulation with Warfarin or Eliquis based on primary teams discretion. Exam Vital Signs Temp Pulse Resp BP Pulse Ox O2 Del Method 97.1 F 84 16 94/59 L 95 Room Air 08/01/24 08:00 08/01/24 08:00 08/01/24 08:00 08/01/24 08:00 08/01/24 08:00 08/01/24 08:00 Narrative Exam General Appearance: Alert & Oriented X3, thin male who is lying in bed in no acute distress HEENT: Skull symmetrical and atraumatic. Conjunctivae pink and moist. External ear without lesion or discharge. Straight, nares patient, mucosa pink, no discharge. Cardio: Normal Rate and Rhythm with S1 and S2 heart sounds. No murmurs or extra heart sounds auscultated. No bruits on carotid auscultation. No peripheral edema or cyanosis. Lungs: Symmetric with good expansion. Chest and back non-tender. Breath sounds vesicular without crackles, wheezing or rhonchi Abdomen: Non-tender, Non-distended, Normal Reactive Bowel Sounds Neuro: Alert, cooperative, oriented to person, place, and time. Speech clear. CN grossly intact. Upper motor strength 5/5 and Lower motor strength 5/5. Sensation intact. Objective Labs 08/01/24 05:14 08/01/24 05:14 Labs: Laboratory Results - last 24 hr 07/31/24 07/31/24 08/01/24 10:13 15:23 05:14 WBC 9.4 RBC 4.10 L Hgb 12.1 L D Hct 35.2 L MCV 86 MCH 29.5 MCHC 34.4 RDW Std Deviation 43.4 Plt Count 186 D Neut % (Auto) 64 Lymph % (Auto) 23 [place] % (Auto) 9 Eos % (Auto) 3 Baso % (Auto) 1 Neut # (Auto) 6.1 Lymph # (Auto) 2.1 [place] # (Auto) 0.9 H Eos # (Auto) 0.3 Baso # (Auto) 0.1 Immature Gran # (Auto) 0.02 H Absolute Nucleated RBC 0.00 Immature Gran % 0 Nucleated RBC % 0 Sodium 145 144 Potassium 3.6 Chloride 110 H Carbon Dioxide 24.6 Anion Gap 9 BUN 12 Creatinine 0.7 D Estim Creat Clear Calc 136.8 eGFR > 60 BUN/Creatinine Ratio [address] Glu mg/dL 94 Hemoglobin A1c 4.9 Calculated Osmolality 286 Calcium 8.3 Corrected Calcium 8.7 Magnesium 1.7 Total Bilirubin 0.6 AST 48 H ALT 84 H Alkaline Phosphatase 99 D Troponin I 0.627 H* 0.464 H* Total Protein 5.5 L Albumin 3.5 D Globulin 2.0 L Albumin/Globulin Ratio 1.8 Quality Measures Quality Measures sepsis Current suspected stage: sepsis Possible source: unknown Blood cultures ordered: yes Antibiotic ordered: Yes Assessment & Plan Assessment Current Active Medications: Generic Name Dose Route Start Last Admin Trade Name Freq PRN Reason Stop Dose Admin Acetaminophen 650 mg 07/30/24 21:29 Acetaminophen Supp 650 Mg Supp [place] 08/29/24 21:28 Q6HR PRN Fever > 100.4 Albuterol/Ipratropium 3 ml 07/31/24 13:00 08/01/24 06:29 Albuterol/Ipratropium (Duoneb) Rt She 3 Ml Nebu INH 08/30/24 12:59 Not Given Q6HRRT MARIA G Aspirin 81 mg 08/01/24 09:00 08/01/24 08:10 Aspirin Ec 81 Mg Tabec PO 08/31/24 08:59 81 mg DAILY MARIA G Administration Heparin Sodium (Porcine) 5,000 unit 07/30/24 22:00 08/01/24 05:10 Heparin Sod Inj 5000 Unit/Ml Vial SC 08/13/24 21:59 5,000 unit Q8HR MARIA G Administration Ceftriaxone Sodium/Dextrose 1 gm in 50 mls @ 100 mls/hr 08/01/24 09:00 08/01/24 08:10 Rocephin/D5w 1gm Iv Premix IV 08/08/24 08:59 100 mls/hr QDAY MARIA G Administration Azithromycin 500 mg/ Sodium 250 mls @ 250 mls/hr 08/01/24 09:00 Chloride IV 08/08/24 08:59 QDAY MARIA G Magnesium Sulfate 4 gm in 50 mls @ 12.5 mls/hr 08/01/24 09:03 Magnesium Sulfate Ivpb IV 08/01/24 13:02 X1 ONE Labetalol HCl 10 mg 07/30/24 21:36 Labetalol Inj 5 Mg/Ml Vial 20 Ml IVP 08/29/24 21:35 Q6H PRN SBP>180, DBP>105,Hold if HR<70 Ondansetron HCl 4 mg 07/30/24 21:29 Ondansetron Inj 2 Mg/Ml Inj 2 Ml IVP 08/29/24 21:28 Q6H PRN NAUSEA OR VOMITING Protocol Plan Patient is a 38-year-old male with a past medical history of schizophrenia, bipolar disorder, substance use disorder with methamphetamine who was admitted on 07/30/2024 acute encephalopathy on admission. # NSTEMI Type II - troponin elevelation mostly from the SAULO , sepsis and substance abuse - supply demand mismatch. #Chest pain Patient presented with atypical chest pain on admission and now heart rate of 163 after consuming given amount of methamphetamine. Patient stated that this was the first time he experienced chest pain secondary to substance use disorder. Troponin noted to be 0.118 on admission and since then up trended to 0.627 and subsequently decreased to 0.464. Troponinemia likely in the setting of NSTEMI type II demand ischemia from methamphetamine use versus NSTEMI type I vs Less likely secondary to LA as no ST elevation noted on EKG with atypical chest pain. EKG noted for deep Q waves and T wave inversions but no reciprocal changes noted. Diagnostics EKG: R waves V2, non specific S-T waves II and III, sinus tachycardia. Troponin 0.108, 0.179, 0.461, 0.627, 0.464 Lipid Panel: Triglycerides 187, Cholesterol 143, HDL 36 A1c 4.9%. ASCVD 0.7% Plan -Jorge require long-term anticoagulation, based on primary teams discretion of Warfarin or Eliquis given patient's noncompliance with doctors visits and also his history of drug abuse, substance abuse. -Aspirn 81 mg, started by primary team -Magnesium >2.0 and Potassium >4.0 -manager monitoring Transaminitis, improving In the setting of SAULO and hypoperfusion vs hepatitis vs alcohol use disorder but less likely as alcohol negative on utox. panel. AST 92/ALT 232-->AST 48/ALT 84 (08/01/2024) Plan -Consider Hepatitis Panel -continue to trend -avoid hepatoxicity #Substance Use Disorder, Meth use Alert and Orientated, last use 07/30/2024, unknown amount. Plan -No acute intervention #Sepsis, unknown etiology, likely setting of Methaphatemine Use #SIRs On admission, patient met SIRs criteria with Tachyardia and elevated WBC count in the setting of substance use disorder w/ meth vs less likely infectious as UA and Chest x-ray unremarkable. CT noted for small base pneumonia. Plan -Ceftriaxone and Azithrmoymcin (08/01/2024--) -Blood cultures negative 24 hours. #SAULO, resolved. #Metabolic Acidosis, High anion gap, resolved #Hypovolemia, Hypernatremia, resolved. #Acute encephalopathy, resolved. Health Maintenance: Disp: Pt is currently admitted to floors for further management of acute encephalopathy and SAULO, and pending Echo FEN: None DVT: on subQ heparin Code: Full Code - The patient's plan was discussed with attending Dr. Claire Lanza MD PGY1 Internal Medicine Attending Provider Attestation/Addendum A 38-year-old male with a past medical history of substance abuse including methamphetamine, schizophrenia, bipolar disorder not on any medication and does not visit doctors brought to the ED the [place] [employer] for medical clearance as his heart rate was between 130 to 160 bpm. Patient also complained of some type pain in shortness of breath. Chest pain acute atypical with radiating to the right side of the chest. Dull pain and reproducible on examination. Patient denies any other cardiac complaints for any palpitations or orthopnea or PND or dizziness or syncope or fall or leg swelling. The emergency department EKG did show sinus tachycardiia with nonspecific ST-T changes, with nonspecific T wave inversions. Initial troponin was 0.108 and the repeat was 0.179, 0.461 and peaked at 0.627 and now downtrending at 0.464. Patient had acute kidney injury with a creatinine of 3.2 and a BUN of 25. AST ALT was elevated at 92 and. Lactate was elevated at 3.1. Procalcitonin 0.51, hemoglobin 18.6 WBC 19.2 with left shift. Head CT was negative. 6 history without any acute pathology. Cardiology was consulted for the elevated troponins in the chest pain. Assessment and plan: 1. NSTEMI type II-elevated troponins mostly secondary to supply/demand mismatch in the setting of SAULO, sepsis, substance abuse 2. Atypical chest pain 3. Acute kidney injury 4. SIRS/sepsis 5. Lactic acidosis 6. Abnormal LFTs 7. Metabolic encephalopathy 8. Substance abuse including methamphetamine use Chest pain is completely atypical and EEG radiating to the right, reproducible. Troponins peaked at 0.67 and now downtrending. EKG with sinus tachycardia with with nonspecific ST-T changes. Patient has multiple reasons for elevated troponins including the SAULO, SIRS, sepsis and substance abuse. No need to trend any further troponins. Repeat an EKG. No need of any heparin drip. Echocardiogram to rule out any regional wall motion abilities and evaluate LV function or functional function. Check TSH A1c and lipid profile for further cardiac restratification. Patient counseled about drug abuse including methamphetamine abuse and instructed to quit completely. Acute kidney injury with IV fluids and creatinine improved from 3.2->1.3 Monitor for any withdrawals from the substance abuse. 08/02/2024: Patient seen and examined at the bedside. Denies any Chest pain chest pressure or other cardiac in place. Patient is doing overall well and is hemodynamically stable. Echocardiogram was completed today showed normal LV size and low normal ejection fraction of 45 to 50%. Apical hypokinesis noted with apical thinning indicating possible old infarct. Well-organized echogenic structure noted at the LV apex with smooth margins measuring 2.4 x 2.3 cm which is mostly chronic LV thrombus given the apical akinesis and hypotension. Normal RV size and function normal RVSP. Mild MR mild AI and trace to mild TR. No pericardial effusion. Discussed with the primary team the findings of the echocardiogram about the LV thrombus which appears mostly chronic given its echogenicity, smooth margins as well as apical akinesis and apical thinning possibly from an old infarct or LA. Upon further questioning patient did have previous episodes of chest pain last year but patient never had a evaluation for the same and he does not see doctors regularly. He was brought into the hospital for medical clearance by the police department and presented with SAULO, lactic acidosis and possible infection or sepsis. Patient will need anticoagulation for his LV thrombus going forward. As noted above LV thrombus appears chronic well-organized with smooth margins. Ideally patient should be on warfarin for anticoagulation given the presence of LV thrombus. There have been multiple case reports of patient treated with Eliquis for anticoagulation as they could not tolerate warfarin or unable to take warfarin for monitoring reasons with good results but there are no randomized trial that has been conducted for the same. Discussed above in detail with the patient and also discussed with the primary team regarding the need for anticoagulation with either warfarin or Eliquis. Patient apparently is also homeless, has significant history of drug abuse, substance abuse, does not follow-up regularly and noncompliant with appointments which which would all make INR monitoring difficult and on the other hand Eliquis is expensive and we will need to check if his insurance will authorize the same. Primary team to make final decision of warfarin or Eliquis based on the above. 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 Primary team to also help the patient making the follow-up appointments. Kidney function is back to normal with a creatinine of 0.7 from peak of 3.2. Patient was hydrated well and is on antibiotics for possible infection. Overall doing well without any major cardiac ablation at the present point of time. Management of rest of the medical conditions as per primary team and other consultants. Thank you for the consult and allowing me to participate in the care of the patient. Cardiology will continue to follow. Laci Rangel M.D. Interventional Cardiology
[2024-08-01] MEDS: POTASSIUM CHLORIDE 20 mEq TABCR 40 MEQ PO (09:40)
[2024-08-01] MEDS: AZITHROMYCIN INJ 500 MG in SODIUM CHLORIDE 0.9% 250 ML 250 ML 250 MG IV (09:40)
[2024-08-01] MEDS: Magnesium Sulfate 4 GM Ivpb 4 GM/50 ML BAG IV (10:01)
[2024-08-01 11:06] LABS: Cholesterol 143 mg/dL (132-200); HDL Cholesterol 36 mg/dL (40-60); LDL Cholesterol,Calculated 70 mg/dL (0-130); Thyroid Stimulating Hormone 1.93 uIU/mL (0.55-4.78); Triglycerides 187 mg/dL (30-150); Vancomycin,Trough < 3.0 mcg/mL (5.0-10.0)
--- NOTE | 2024-08-01 11:08 | PC.SS ---
Follow up note: echo pending
--- NOTE | 2024-08-01 15:17 | ESPR_ITS ---
<Statement entered by Tim Brandon MD - 08/02/24 07:18> I discussed with and supervised the program management intern physician involved in the care of this patient. Patient assessment and plan was discussed with entire medicine team, including my attending. I agree with the assessment and plan as documented by program management intern doctor. Patient care was discussed with my attending physician Dr. Erica Brandon, PGY-2 Documentation for date of: 08/01/24 Subjective Subjective Interval history: No acute overnight events. Appears better this morning, mentation improved, reports feeling better this morning also. Vitals relatively stable. CHEM panel relatively unchanged, LFTs downtrending, renal function normal. CBC showed some dilutional changes with WBC 9.4, Hgb 12.1. Urine and blood culture showing no growth. Spoke with social human services assistants, patient has appointment [facility] ready for discharge. Echocardiac done today, showing likely old thrombus. Cardiology recommended WARFARIN although patient will be started on ELIQUIS, given compliance issues with patient being homeless, unable to comply with INR checks. Pending final echo read, may discharge tomorrow if cleared by cardiology. Exam Vital Signs Temp Pulse Resp BP Pulse Ox O2 Del Method 96.9 F 63 14 94/56 L 97 Room Air 08/01/24 12:00 08/01/24 12:00 08/01/24 12:00 08/01/24 12:00 08/01/24 12:08/01/24 12:00 Narrative Exam General: Normal appearing adult male, slightly disheveled, no apparent distress Eyes: PERRL, EOMI. Anicteric, vision grossly intact. Ears: No ear discharge, Hearing grossly intact. Nose: No nasal discharge. Mouth/Throat: Dry mucous membranes, no redness, no lesions. Neck: Neck supple, non-tender, no cervical lymphadenopathy. Lungs: Clear JANEE to auscultation and percussion, No accessory muscle use. Cardio: Normal S1/S2, regular rhythm, no murmurs, no JVD Abdomen: Soft, non-tender, no palpable masses, peristalsis present, no guarding or rebound. Extremities: Symmetrical, no significant deformities, no peripheral edema , non-tender, peripheral pulses presents. Skin: No rashes, no lesions, warm to touch. Neuro: Normal mood and affect, cooperative, no SI or HI or hallucinations. Objective Labs 08/01/24 05:14 08/01/24 05:14 Labs: Laboratory Results - last 24 hr 07/31/24 08/01/24 08/01/24 15:23 05:14 09:16 WBC 9.4 RBC 4.10 L Hgb 12.1 L D Hct 35.2 L MCV 86 MCH 29.5 MCHC 34.4 RDW Std Deviation 43.4 Plt Count 186 D Neut % (Auto) 64 Lymph % (Auto) 23 [place] % (Auto) 9 Eos % (Auto) 3 Baso % (Auto) 1 Neut # (Auto) 6.1 Lymph # (Auto) 2.1 [place] # (Auto) 0.9 H Eos # (Auto) 0.3 Baso # (Auto) 0.1 Immature Gran # (Auto) 0.02 H Absolute Nucleated RBC 0.00 Immature Gran % 0 Nucleated RBC % 0 Sodium 145 144 Potassium 3.6 Chloride 110 H Carbon Dioxide 24.6 Anion Gap 9 BUN 12 Creatinine 0.7 D Estim Creat Clear Calc 136.8 eGFR > 60 BUN/Creatinine Ratio [address] Glu mg/dL 94 Hemoglobin A1c 4.9 Calculated Osmolality 286 Calcium 8.3 Corrected Calcium 8.7 Magnesium 1.7 Total Bilirubin 0.6 AST 48 H ALT 84 H Alkaline Phosphatase 99 D Troponin I 0.464 H* Total Protein 5.5 L Albumin 3.5 D Globulin 2.0 L Albumin/Globulin Ratio 1.8 Triglycerides 187 H Cholesterol 143 LDL Cholesterol, Calc 70 HDL Cholesterol 36 L Cholesterol/HDL Ratio 4.0 TSH 1.93 Vancomycin Trough < 3.0 L Quality Measures Quality Measures sepsis Current suspected stage: sepsis Possible source: unknown Blood cultures ordered: yes Antibiotic ordered: Yes Assessment & Plan Assessment Current Active Medications: Generic Name Dose Route Start Last Admin Trade Name Freq PRN Reason Stop Dose Admin Acetaminophen 650 mg 07/30/24 21:29 Acetaminophen Supp 650 Mg Supp [place] 08/29/24 21:28 Q6HR PRN Fever > 100.4 Albuterol/Ipratropium 3 ml 08/01/24 14:12 Albuterol/Ipratropium (Duoneb) Rt She 3 Ml Nebu INH 08/30/24 12:59 Q6HRRT PRN WHEEZING Aspirin 81 mg 08/01/24 09:00 08/01/24 08:10 Aspirin Ec 81 Mg Tabec PO 08/31/24 08:59 81 mg DAILY MARIA G Administration Heparin Sodium (Porcine) 5,000 unit 07/30/24 22:00 08/01/24 14:01 Heparin Sod Inj 5000 Unit/Ml Vial SC 08/13/24 21:59 5,000 unit Q8HR MARIA G Administration Ceftriaxone Sodium/Dextrose 1 gm in 50 mls @ 100 mls/hr 08/01/24 09:00 08/01/24 08:10 Rocephin/D5w 1gm Iv Premix IV 08/08/24 08:59 100 mls/hr QDAY MARIA G Administration Azithromycin 500 mg/ Sodium 250 mls @ 250 mls/hr 08/01/24 09:00 08/01/24 09:40 Chloride IV 08/08/24 08:59 250 mls/hr QDAY MARIA G Administration Labetalol HCl 10 mg 07/30/24 21:36 Labetalol Inj 5 Mg/Ml Vial 20 Ml IVP 08/29/24 21:35 Q6H PRN SBP>180, DBP>105,Hold if HR<70 Ondansetron HCl 4 mg 07/30/24 21:29 Ondansetron Inj 2 Mg/Ml Inj 2 Ml IVP 08/29/24 21:28 Q6H PRN NAUSEA OR VOMITING Protocol Plan 38-year-old homeless male with PMHx of schizophrenia, bipolar disorder, methamphetamine use was admitted to the hospital on 07/30/2024 for acute encephalopathy. Appreciate recommendation from cardiology team. Acute encephalopathy (resolved) in settings of: Meth use UTI likely GNR Community acquired pneumonia likely GNR Hx of schizophrenia and bipolar disorder Severe dehydration Lactic acidosis, type A 2/2 dehydration Presented for medical clearance by police for tachycardia, found encephalopathic in the ED. Head CT was CXR showed no acute pathology. U tox positive for METH. UA showed some bacteria. CT abdomen showed mild left base pneumonia and moderate parenchymal scar formation. Labs showing signs of dehydration including hyponatremia, lactic acidosis, elevated creatinine kinase, Hgb/WBC concentration. Completed 1 day of ZOSYN and VANCOMYCIN, continued on IV fluids. Symptoms improved, ANO x 3. Lactic acidosis resolved. ? Continue AZITHROMYCIN and CEFTRIAXONE (07/30 to present) ? Encourage oral hydration ? Urine and blood culture pending, currently showing no growth. ? Daily labs Atrial thrombus as seen on echo, likely old Echo was done today, showing atrial thrombus (pending final report). Guidelines recommend WARFARIN however given compliance issues with patient being homeless unable to comply with INR, ELIQUIS may be better options given compliance issue. Given thrombus likely old, no need for loading dose. ? Started ELIQUIS 5 mg BID NSTEMI, likely type II in settings of dehydration Troponin peaked at 0.627, EKG showed sinus rhythm, deep Q waves noted in leads V2 with ST depression in lead leads II and III. Asymptomatic, no chest pain, dizziness or palpitations. TG 187, cholesterol 143, LDL 70, HDL 36. TSH 193, A1c 5.9. ASCVD score 2%, no statin recommendation, however will wait for cardiology recommendations. ? Continue ASPIRIN 81 mg daily ? Maintain K > 4.0 and Mg > 2.0 ? Pending echocardiogram ? Pending cardiology recommendations Hypernatremia 2/ dehydration Sodium 153, improved to 145 with IVF. ? Daily labs Prerenal SAULO in settings of dehydration (resolved) High anion gap metabolic acidosis, lactic acidosis vs uremic (resolved) Admission creatinine of 3.2 from 1.0 on 05/23 Anion gap of 25 and bicarb of 18.1, currently anion gap 14. ? Daily labs ? Renally dose meds, avoid overdiuresis and NEPHROTOXINS ? Daily CMP HTN Presented with hypotension, which resolved with 1 dose HYDRALAZINE. Currently normotensive, normal cardiac. ? LABETALOL PRN on board Hypokalemia (resolved) Erythrocytosis (resolved) Hypercalcemia (reseovled) Hypomagnesemia (resolved) Mild transaminitis (improving) Likely concentrational in settings of dehydration Improved with IVF ? Daily labs Health maintenance Diet: Cardiac GI prophylaxis: Not indicated DVT prophylaxis: HEPARIN subcu Antibiotics: CEFTRIAXONE, AZITHROMYCIN CODE STATUS: Full code Disposition: Pending echocardiogram read, may discharge if cleared by cardiology. Case was discussed with attending physician and senior resident. Abigail Ordoñez DO PGYI Attending Provider Attestation/Addendum I have discussed and was present for the essential components of the history, physical examination, diagnosis, and treatment plan with the resident. I agree with the patient's care as documented by the resident and amended herein by me. Don Maldonado DO. Patient seen and evaluated this AM. No acute events overnight, troponin did downtrend to 0.4, WBC down trended to 12, potassium 3.6 which will be repleted, mag 1.7 will also be repleted. Echo pending, cardiology consulted, appreciate recommendations. We also ordered A1c and lipid panel, will follow-up with results. Patient also will continue broad-spectrum antibiotics for pneumonia for now. Although this document has been carefully reviewed, there may still be some phonetic and other typographical errors. These errors are purely grammatical due to imperfections in the software program and should not be construed in any way to compromise the substance of the patient's medical care during this visit.
[2024-08-01] MEDS: APIXABAN 2.5 MG TABLET 5 MG PO (20:55)
[2024-08-02] VITALS: BP 91/64; PULSE 61; RESP 16; TEMP 36.1; O2SAT 98
[2024-08-02 04:00] VITALS: BP 95/67; PULSE 61; PULSE 63; RESP 17; TEMP 36.1; O2SAT 97
[2024-08-02 05:32] LABS: Basophils % (Auto) 1 % (0-2.5); Eosinophils # (Auto) 0.3 Thou/mm3 (0.0-0.5); Eosinophils % (Auto) 4 % (0-10); Hematocrit 37.3 % (41.0-53.0); Immature Granulocytes % (Auto) 0 % (0-0); Immature Granulocytes Auto 0.01 Thou/mm3 (0.00-0.00); Lymphocytes # (Auto) 2.1 Thou/mm3 (1.0-4.8); Lymphocytes % (Auto) 31 % (10-50); Mean Corpuscular HGB Conc 34.9 g/dl (31.0-37.0); Mean Corpuscular Hemoglobin 29.9 pg (25.0-35.0); Mean Corpuscular Volume 86 fL (80-100); Monocytes # (Auto) 0.7 Thou/mm3 (0.0-0.8); Monocytes % (Auto) 11 % (0-12); Neutrophils # (Auto) 3.5 Thou/mm3 (1.8-7.7); Neutrophils % (Auto) 53 % (37-80); Nucleated Red Blood Cell % 0 /100 WBC (0); Platelet Count 216 Thou/mm3 (140-440); RDW Standard Deviation 42.5 fL (35.1-43.9); Red Blood Count 4.35 Miln/mm3 (4.50-5.90); White Blood Count 6.6 Thou/mm3 (3.8-10.6)
[2024-08-02 06:37] LABS: Alanine Aminotransferase 68 U/L (10-49); Albumin, Serum 3.8 gm/dL (3.5-5.0); Albumin/Globulin Ratio 1.8 (1.2-2.2); Alkaline Phosphatase 103 U/L (46-116); Anion Gap 11 (7-16); Aspartate Amino Transferase 37 U/L (0-34); BUN/Creatinine Ratio 10 Ratio (12-20); Bilirubin,Total 0.4 mg/dL (0.3-1.2); Blood Urea Nitrogen 8 mg/dL (9-23); Calcium 8.8 mg/dL (8.3-10.6); Chloride 107 mMol/L (98-107); Creatinine (Component) 0.8 mg/dL (0.6-1.3); Estimated Creatinine Clearance 126.7 mL/min (>60); Globulin 2.1 gm/dL (2.3-3.5); Glucose 87 mg/dL (74-106); Magnesium 1.8 mg/dL (1.6-2.6); Osmolality,Calculated 286 (275-295); Sodium 145 mMol/L (136-145); Total Protein 5.9 gm/dL (5.7-8.2); eGFR > 60 See Note
--- NOTE | 2024-08-02 07:32 | PD.RESPRO ---
Documentation for date of: 08/02/24 Exam Vital Signs Temp Pulse Resp BP Pulse Ox O2 Del Method 96.9 F 63 17 95/67 97 Room Air 08/02/24 04:00 08/02/24 04:00 08/02/24 04:00 08/02/24 04:00 08/02/24 04:00 08/02/24 04:00 Objective Labs 08/02/24 04:28 08/02/24 04:28 Labs: Laboratory Results - last 24 hr 08/01/24 08/01/24 08/02/24 05:14 09:16 04:28 WBC 6.6 RBC 4.35 L Hgb 13.0 L Hct 37.3 L MCV 86 MCH 29.9 MCHC 34.9 RDW Std Deviation 42.5 Plt Count 216 D Neut % (Auto) 53 Lymph % (Auto) 31 [place] % (Auto) 11 Eos % (Auto) 4 Baso % (Auto) 1 Neut # (Auto) 3.5 Lymph # (Auto) 2.1 [place] # (Auto) 0.7 Eos # (Auto) 0.3 Baso # (Auto) 0.0 Immature Gran # (Auto) 0.01 H Absolute Nucleated RBC 0.00 Immature Gran % 0 Nucleated RBC % 0 Sodium 145 Potassium 4.0 Chloride 107 Carbon Dioxide 27.0 Anion Gap 11 BUN 8 L Creatinine 0.8 Estim Creat Clear Calc 126.7 eGFR > 60 BUN/Creatinine Ratio 10 L Glucose [address] Glu mg/dL 94 Hemoglobin A1c 4.9 Calculated Osmolality 286 Calcium 8.8 Corrected Calcium 9.0 Magnesium 1.8 Total Bilirubin 0.4 AST 37 H ALT 68 H Alkaline Phosphatase 103 Total Protein 5.9 Albumin 3.8 Globulin 2.1 L Albumin/Globulin Ratio 1.8 Triglycerides 187 H Cholesterol 143 LDL Cholesterol, Calc 70 HDL Cholesterol 36 L Cholesterol/HDL Ratio 4.0 TSH 1.93 Vancomycin Trough < 3.0 L Quality Measures Quality Measures VTE prophylaxis Assessment & Plan Assessment Current Active Medications: Generic Name Dose Route Start Last Admin Trade Name Freq PRN Reason Stop Dose Admin Acetaminophen 650 mg 07/30/24 21:29 Acetaminophen Supp 650 Mg Supp [place] 08/29/24 21:28 Q6HR PRN Fever > 100.4 Albuterol/Ipratropium 3 ml 08/01/24 14:12 Albuterol/Ipratropium (Duoneb) Rt She 3 Ml Nebu INH 08/30/24 12:59 Q6HRRT PRN WHEEZING Apixaban 5 mg 08/01/24 21:00 08/01/24 20:55 Apixaban 2.5 Mg Tablet PO 08/31/24 20:59 5 mg BID MARIA G Administration Aspirin 81 mg 08/01/24 09:00 08/01/24 08:10 Aspirin Ec 81 Mg Tabec PO 08/31/24 08:59 81 mg DAILY MARIA G Administration Ceftriaxone Sodium/Dextrose 1 gm in 50 mls @ 100 mls/hr 08/01/24 09:00 08/01/24 08:10 Rocephin/D5w 1gm Iv Premix IV 08/08/24 08:59 100 mls/hr QDAY MARIA G Administration Azithromycin 500 mg/ Sodium 250 mls @ 250 mls/hr 08/01/24 09:00 08/01/24 09:40 Chloride IV 08/08/24 08:59 250 mls/hr QDAY MARIA G Administration Labetalol HCl 10 mg 07/30/24 21:36 Labetalol Inj 5 Mg/Ml Vial 20 Ml IVP 08/29/24 21:35 Q6H PRN SBP>180, DBP>105,Hold if HR<70 Ondansetron HCl 4 mg 07/30/24 21:29 Ondansetron Inj 2 Mg/Ml Inj 2 Ml IVP 08/29/24 21:28 Q6H PRN NAUSEA OR VOMITING Protocol Plan 38-year-old homeless male with PMHx of schizophrenia, bipolar disorder, methamphetamine use was admitted to the hospital on 07/30/2024 for acute encephalopathy. Appreciate recommendation from cardiology team. Acute encephalopathy (resolved) in settings of: Meth use UTI likely GNR Community acquired pneumonia likely GNR Hx of schizophrenia and bipolar disorder Severe dehydration Lactic acidosis, type A 2/2 dehydration Presented for medical clearance by police for tachycardia, found encephalopathic in the ED. Head CT was CXR showed no acute pathology. U tox positive for METH. UA showed some bacteria. CT abdomen showed mild left base pneumonia and moderate parenchymal scar formation. Labs showing signs of dehydration including hyponatremia, lactic acidosis, elevated creatinine kinase, Hgb/WBC concentration. Completed 1 day of ZOSYN and VANCOMYCIN, continued on IV fluids. Symptoms improved, ANO x 3. Lactic acidosis resolved. ? Continue AZITHROMYCIN and CEFTRIAXONE (07/30 to present) ? Encourage oral hydration ? Urine and blood culture pending, currently showing no growth. ? Daily labs LV thrombus as seen on echo, likely old Echo showed well-organized echogenic structure noted at the LV apex with smooth margins measuring 2.4 x 2.3 cm - mostly chronic LV thrombus given the apical akinesis and apical thinning. Guidelines recommend WARFARIN however given compliance issues with patient being homeless unable to comply with INR, ELIQUIS may be better options given compliance issue. Given thrombus likely old, no need for loading dose. ? Started ELIQUIS 5 mg BID HFrEF EEF 45-50% (NEW) 08/01/2024 ECHO findings: Normal liver size and low normal ejection fraction at around 45 to 50%. Apical akinesis noted with apical thinning indicating possible old infarct. Well-organized echogenic structure noted at the LV apex with smooth margins measuring 2.4 x 2.3 cm - mostly chronic LV thrombus given the apical akinesis and apical thinning. Normal RV size and function. Normal RVSP Mild MR, mild AI and trace to mild TR. No pericardial effusion NSTEMI, likely type II in settings of dehydration Troponin peaked at 0.627, EKG showed sinus rhythm, deep Q waves noted in leads V2 with ST depression in lead leads II and III. Asymptomatic, no chest pain, dizziness or palpitations. TG 187, cholesterol 143, LDL 70, HDL 36. TSH 193, A1c 5.9. ASCVD score 2%, no statin recommendation, however will wait for cardiology recommendations. ? Continue ASPIRIN 81 mg daily ? Maintain K > 4.0 and Mg > 2.0 ? Pending echocardiogram ? Pending cardiology recommendations Hypernatremia 2/2 dehydration Sodium 153, improved to 145 with IVF. ? Daily labs Prerenal SAULO in settings of dehydration (resolved) High anion gap metabolic acidosis, lactic acidosis vs uremic (resolved) Admission creatinine of 3.2 from 1.0 on 05/23 Anion gap of 25 and bicarb of 18.1, currently anion gap 14. ? Daily labs ? Renally dose meds, avoid overdiuresis and NEPHROTOXINS ? Daily CMP HTN Presented with hypotension, which resolved with 1 dose HYDRALAZINE. Currently normotensive, normal cardiac. ? LABETALOL PRN on board Hypokalemia (resolved) Erythrocytosis (resolved) Hypercalcemia (reseovled) Hypomagnesemia (resolved) Mild transaminitis (improving) Likely concentrational in settings of dehydration Improved with IVF ? Daily labs Health maintenance Diet: Cardiac GI prophylaxis: Not indicated DVT prophylaxis: HEPARIN subcu Antibiotics: CEFTRIAXONE, AZITHROMYCIN CODE STATUS: Full code Disposition: Pending echocardiogram read, may discharge if cleared by cardiology. Case was discussed with attending physician and senior resident. Abigail Ordoñez DO PGYI Attending Provider Attestation/Addendum I have discussed and was present for the essential components of the history, physical examination, diagnosis, and treatment plan with the resident. I agree with the patient's care as documented by the resident and amended herein by me. Don Maldonado DO. Patient seen and evaluated this AM. No acute events overnight, troponin did downtrend to 0.4, WBC down trended to 12, potassium 3.6 which will be repleted, mag 1.7 will also be repleted. Echo pending, cardiology consulted, appreciate recommendations. We also ordered A1c and lipid panel, will follow-up with results. Patient also will continue broad-spectrum antibiotics for pneumonia for now. Although this document has been carefully reviewed, there may still be some phonetic and other typographical errors. These errors are purely grammatical due to imperfections in the software program and should not be construed in any way to compromise the substance of the patient's medical care during this visit.
--- NOTE | 2024-08-02 07:43 | ESPR_ITS ---
Documentation for date of: 08/02/24 Subjective Subjective Interval history: Patient is a 38-year-old male with a past medical history of schizophrenia, bipolar disorder, substance use disorder with methamphetamine who denied any other chronic medical history. Patient presented to the emergency room on 07/30/2024 initially brought in for medical clearance by the [place] police department with HR 160s. Patient complaining of typical left chest pain radiating to the right and left. Patient stated pain is dull. Worsens with deep inspiration. Chest pain worsens to palpation. Patient stated atypical chest pain began shortly after consuming methamphetamine, patient unable to quantify amount. Denied palpitations. Patient stated this is never happened before. Patient denied cardiac history including hypertension or hyperlipidemia. Patient denied dizziness blurry vision. Patient was alert and oriented x 3. Patient denied any recent sick contacts. Patient denied nausea or emesis. Patient denied any or fevers. 07/31/2024: Cardiology consulted for troponinemia and atypical chest pain. 08/01/2024: No overnight events. Patient examined at bedside this morning. Patient denied chest pain or shortness of breath. No pain ilicited by deep palpation. Echo (07/31/2024): Noted to have thrombus, appearing organized, thus indicating chronic thrombus. [place] appears thin likely thrombus secondary to old [place]. Patient will require anticoagulation with Warfarin or Eliquis based on primary teams discretion. 08/02/2024: Patient examinded at bedside. No chest pain or SOB. Patient started on Eliquis, denied any bleeding. Counseled on increased risk of bleeding with eliquis, seek medical attention if bleeding does not stop. Exam Vital Signs Temp Pulse Resp BP Pulse Ox O2 Del Method 96.9 F 63 17 95/67 97 Room Air 08/02/24 04:00 08/02/24 04:00 08/02/24 04:00 08/02/24 04:00 08/02/24 04:00 08/02/24 04:00 Narrative Exam General Appearance: Alert & Oriented X3, thin male who is lying in bed in no acute distress HEENT: Skull symmetrical and atraumatic. Conjunctivae pink and moist. External ear without lesion or discharge. Straight, nares patient, mucosa pink, no discharge. Cardio: Normal Rate and Rhythm with S1 and S2 heart sounds. No murmurs or extra heart sounds auscultated. No bruits on carotid auscultation. No peripheral edema or cyanosis. Lungs: Symmetric with good expansion. Chest and back non-tender. Breath sounds vesicular without crackles, wheezing or rhonchi Abdomen: Non-tender, Non-distended, Normal Reactive Bowel Sounds Neuro: Alert, cooperative, oriented to person, place, and time. Speech clear. CN grossly intact. Upper motor strength 5/5 and Lower motor strength 5/5. Sensation intact. Objective Labs 08/02/24 04:28 08/02/24 04:28 Labs: Laboratory Results - last 24 hr 08/01/24 08/01/24 08/02/24 05:14 09:16 04:28 WBC 6.6 RBC 4.35 L Hgb 13.0 L Hct 37.3 L MCV 86 MCH 29.9 MCHC 34.9 RDW Std Deviation 42.5 Plt Count 216 D Neut % (Auto) 53 Lymph % (Auto) 31 [place] % (Auto) 11 Eos % (Auto) 4 Baso % (Auto) 1 Neut # (Auto) 3.5 Lymph # (Auto) 2.1 [place] # (Auto) 0.7 Eos # (Auto) 0.3 Baso # (Auto) 0.0 Immature Gran # (Auto) 0.01 H Absolute Nucleated RBC 0.00 Immature Gran % 0 Nucleated RBC % 0 Sodium 145 Potassium 4.0 Chloride 107 Carbon Dioxide 27.0 Anion Gap 11 BUN 8 L Creatinine 0.8 Estim Creat Clear Calc 126.7 eGFR > 60 BUN/Creatinine Ratio 10 L Glucose [address] Glu mg/dL 94 Hemoglobin A1c 4.9 Calculated Osmolality 286 Calcium 8.8 Corrected Calcium 9.0 Magnesium 1.8 Total Bilirubin 0.4 AST 37 H ALT 68 H Alkaline Phosphatase 103 Total Protein 5.9 Albumin 3.8 Globulin 2.1 L Albumin/Globulin Ratio 1.8 Triglycerides 187 H Cholesterol 143 LDL Cholesterol, Calc 70 HDL Cholesterol 36 L Cholesterol/HDL Ratio 4.0 TSH 1.93 Vancomycin Trough < 3.0 L Quality Measures Quality Measures VTE prophylaxis Assessment & Plan Assessment Current Active Medications: Generic Name Dose Route Start Last Admin Trade Name Freq PRN Reason Stop Dose Admin Acetaminophen 650 mg 07/30/24 21:29 Acetaminophen Supp 650 Mg Supp [place] 08/29/24 21:28 Q6HR PRN Fever > 100.4 Albuterol/Ipratropium 3 ml 08/01/24 14:12 Albuterol/Ipratropium (Duoneb) Rt She 3 Ml Nebu INH 08/30/24 12:59 Q6HRRT PRN WHEEZING Apixaban 5 mg 08/01/24 21:00 08/01/24 20:55 Apixaban 2.5 Mg Tablet PO 08/31/24 20:59 5 mg BID MARIA G Administration Aspirin 81 mg 08/01/24 09:00 08/01/24 08:10 Aspirin Ec 81 Mg Tabec PO 08/31/24 08:59 81 mg DAILY MARIA G Administration Ceftriaxone Sodium/Dextrose 1 gm in 50 mls @ 100 mls/hr 08/01/24 09:00 08/01/24 08:10 Rocephin/D5w 1gm Iv Premix IV 08/08/24 08:59 100 mls/hr QDAY MARIA G Administration Azithromycin 500 mg/ Sodium 250 mls @ 250 mls/hr 08/01/24 09:00 08/01/24 09:40 Chloride IV 08/08/24 08:59 250 mls/hr QDAY MARIA G Administration Magnesium Sulfate 2 gm in 50 mls @ 25 mls/hr 08/02/24 07:36 Magnesium Sulfate Ivpb IV 08/02/24 09:35 X1 ONE Labetalol HCl 10 mg 07/30/24 21:36 Labetalol Inj 5 Mg/Ml Vial 20 Ml IVP 08/29/24 21:35 Q6H PRN SBP>180, DBP>105,Hold if HR<70 Ondansetron HCl 4 mg 07/30/24 21:29 Ondansetron Inj 2 Mg/Ml Inj 2 Ml IVP 08/29/24 21:28 Q6H PRN NAUSEA OR VOMITING Protocol Plan Patient is a 38-year-old male with a past medical history of schizophrenia, bipolar disorder, substance use disorder with methamphetamine who was admitted on 07/30/2024 acute encephalopathy on admission. # NSTEMI Type II - troponin elevelation mostly from the SAULO , sepsis and substance abuse - supply demand mismatch. #Chest pain Patient presented with atypical chest pain on admission and now heart rate of 163 after consuming given amount of methamphetamine. Patient stated that this was the first time he experienced chest pain secondary to substance use disorder. Troponin noted to be 0.118 on admission and since then up trended to 0.627 and subsequently decreased to 0.464. Troponinemia likely in the setting of NSTEMI type II demand ischemia from methamphetamine use versus NSTEMI type I vs Less likely secondary to [place] as no ST elevation noted on EKG with atypical chest pain. EKG noted for deep Q waves and T wave inversions but no reciprocal changes noted. Diagnostics EKG: R waves V2, non specific S-T waves II and III, sinus tachycardia. Troponin 0.108, 0.179, 0.461, 0.627, 0.464 Lipid Panel: Triglycerides 187, Cholesterol 143, HDL 36 A1c 4.9%. ASCVD 0.7% Plan -Jorge require long-term anticoagulation, based on primary teams discretion of Warfarin or Eliquis given patient's noncompliance with doctors visits and also his history of drug abuse, substance abuse. 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 panel. AST 92/ALT 232-->AST 37/ALT 68(08/02/2024) Plan -continue to trend -avoid hepatoxicity #Substance Use Disorder, Meth use Alert and Orientated, last use 07/30/2024, unknown amount. Plan -No acute intervention #Sepsis, unknown etiology, RULED OUT #SIRs , likely setting of Methaphatemine Use On admission, patient met SIRs criteria with [place] and elevated WBC count in the setting of substance use disorder w/ meth vs less likely infectious as UA and Chest x-ray unremarkable. CT noted for small base pneumonia. Plan -Ceftriaxone and Azithrmoymcin (08/01/2024--) -Blood cultures negative after 48 hours #SAULO, resolved. #Metabolic Acidosis, High anion gap, resolved #Hypovolemia, Hypernatremia, resolved. #Acute encephalopathy, resolved. Health Maintenance: Disp: Pt is currently admitted to floors for further management of acute encephalopathy and SAULO, and cardiology signing off FEN: None DVT: on subQ heparin Code: Full Code - The patient's plan was discussed with attending Dr. Claire Lanza MD PGY1 Internal Medicine Attending Provider Attestation/Addendum I have personally seen and examined the patient separately on the above date of service and discussed the plan of care with the resident. I reviewed the resident Dr. Crystal Lanza consultation progress note and agree with the resident findings and plan in the note above and have also edited the documentation to reflect my findings and plan.
[2024-08-02 08:00] VITALS: BP 91/51; PULSE 70; PULSE 73; RESP 19; TEMP 36.3; O2SAT 96
--- NOTE | 2024-08-02 08:06 | ESDS_ITS ---
<Statement entered by Tim Brandon MD - 08/03/24 07:14> I discussed with and supervised the marketing intern physician involved in the care of this patient. Patient assessment and plan was discussed with entire medicine team, including my attending. I agree with the assessment and plan as documented by marketing intern doctor. Patient care was discussed with my attending physician Dr. Erica Brandon, PGY-2 Planned Discharge Date 08/01/24 DS: Providers Provider Date of admission: 07/30/24 21:29 Primary care physician: Physician Deb Primary/Family Admitting Provider: Dima Yi MD Attending Provider on Admission: Dave Maldonado DO Consults: 07/31/24 09:52 Consult to Cardiology Routine Comment: NSTEMI, trop up trending 0.461, EKG no st change Consulting Provider: Laci Rangel Attending Provider on DC: Dave Maldonado DO Discharging Provider: Dave Maldonado DO DS: Diagnosis Problem List Completed Was Problem List Reviewed/Reconciled?: Yes Hospital Course Hospital Course Hospital course: This is a 38-year-old male PMHx of schizophrenia, bipolar disorder, METHAMPHETAMINE use, originally brought by police for medical clearance and then admitted on 07/30/2024 for acute encephalopathy, likely in settings of dehydration and METH use. On admission he had lactic acidosis, high anion gap metabolic acidosis, mild SAULO, pneumonia and UTI although he was asymptomatic. Labs showed concentration component with leukocytosis, hypernatremia, hypercalcemia, and hypomagnesia. He was found to have an NSTEMI most likely type II, likely demand ischemia in settings of METH use and dehydration. U tox was positive for METH. Troponin peaked at 0.627, EKG showed R waves V2, non specific T waves II and III, sinus tachycardia. Although patient was asymptomatic, without chest pain, shortness of breath or palpitations. His labs normalized after IVF and oral hydrations, SAULO resolved, transaminitis improved. He continued on ANTIBIOTICS for community-acquired pneumonia, and less likely UTI. Urine and blood culture showed no growth. 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 WARFARIN usually is preferred, however given compliance issues with patient being homeless unable to comply with INR, ELIQUIS may be better options given c ompliance issue. There have been multiple case reports of patient treated with Eliquis for anticoagulation as they could not tolerate warfarin or unable to take warfarin for monitoring reasons with good results but there are no randomized trial that has been conducted for the same. Given thrombus likely old, no need for loading dose. He will continue on ELIQUIS 5 mg BID indefinitely, until seen by cardiology. Risk and adverse effects of starting anticoagulation/ANTIPLATELET therapy was discussed with patient, patient agreed prior to starting therapy. He was stable at the time of discharge. Will discharge to [facility], continue ASPIRIN daily indefinitely until seen by PCP, continue DOXYCYCLINE for 4 more days of therapy. Patient reports having no PCP, contact information for [facility] were provided. Recommended follow-up within 1 week after discharge. IMAGE FINDINGS: * CXR showed no active disease. * CT head negative for acute hemorrhage, mass effects or midline shift. * CT CAP showed mild left base pneumonia, moderate right/left renal parenchymal scarring. * ECHOCARDIOGRAM * Normal liver size and low normal ejection fraction at around 45 to 50%. * Apical akinesis noted with apical thinning indicating possible old infarct. * Well-organized echogenic structure noted at the LV apex with smooth margins measuring 2.4 x 2.3 cm - mostly chronic LV thrombus given the apical akinesis and apical thinning. * Normal RV size and function. Normal RVSP. * Mild MR, mild AI and trace to mild TR. No pericardial effusion. Significant lab findings at discharge: AST 37, ALT 68, ALP 103. TG 187, cholesterol 143, LDL 70, HDL 36, Hgb 13.0, PLT 186. A1c 4.9. TSH 1.93. PATIENT INSTRUCTIONS: Follow-up with PCP within 1-2 weeks of discharge. Follow-up with cardiology within 1-2 weeks of discharge. Recommended GDMT to be started outpatient Recommended patient evaluation and treatment for psych disorder. Recommended drug, alcohol and tobacco cessation. Recommended repeat LFTs, consider further workup if remain elevated. Return to Emergency Room if symptoms persist, worsen, or new symptoms develop. Continue taking medications as prescribed below: ? ASPIRIN 81 mg daily until you see your PCP ? DOXYCYCLINE 100 mg twice daily for 4 days ? ELIQUIS 5 mg twice daily indefinitely ADMISSION DIAGNOSES: Acute encephalopathy (resolved) Meth use UTI likely GNR (resolved) Community acquired pneumonia likely GNR (resolved) HFrEF EEF 45-50% (NEW) LV thrombus as seen on echo, likely old (NEW FINDING) Severe dehydration (resolved) Lactic acidosis, type A 2/2 dehydration (resolved) NSTEMI, likely type II in settings of dehydration Hypernatremia 2/2 dehydration (resolved) Prerenal SAULO in settings of dehydration (resolved) High anion gap metabolic acidosis, lactic acidosis vs uremic (resolved) HTN (resolved) Hypokalemia (resolved) Erythrocytosis (resolved) Hypercalcemia (reseovled) Hypomagnesemia (resolved) Mild transaminitis (improving) Hx of schizophrenia and bipolar disorder Case was discussed with attending physician and senior resident. Abigail Ordoñez DO PGYI Status at Discharge Functional status at discharge: independent ambulation Overall status at discharge: patient is back to baseline Time Spent with Patient Time attestation: Total time spent providing and/or coordinating discharge services: Greater than 35 minutes. Time spent: Greater than 30 minutes Exam Vital Signs Temp Pulse Resp BP Pulse Ox O2 Del Method 96.9 F 63 14 94/56 L 97 Room Air 08/01/24 12:08/01/24 12:08/01/24 12:00 08/01/24 12:08/01/24 12:08/01/24 12:00 Narrative Exam General: Normal appearing adult male, slightly disheveled, no apparent distress Eyes: PERRL, EOMI. Anicteric, vision grossly intact. Ears: No ear discharge, Hearing grossly intact. Nose: No nasal discharge. Mouth/Throat: Dry mucous membranes, no redness, no lesions. Neck: Neck supple, non-tender, no cervical lymphadenopathy. Lungs: Clear JANEE to auscultation and percussion, No accessory muscle use. Cardio: Normal S1/S2, regular rhythm, no murmurs, no JVD Abdomen: Soft, non-tender, no palpable masses, peristalsis present, no guarding or rebound. Extremities: Symmetrical, no significant deformities, no peripheral edema , non-tender, peripheral pulses presents. Skin: No rashes, no lesions, warm to touch. Neuro: Normal mood and affect, cooperative, no SI or HI or hallucinations. Discharge Plan Plan Patient Disposition: Xfer Other Facility Pt Being Transferred to: Other-Specify in comment Disposition Comment: Discharge to [facility] Patient condition on transfer: Stable Care Plan Goals: Follow-up with PCP within 1-2 weeks of discharge. Follow-up with cardiology within 1-2 weeks of discharge. Recommended GDMT to be started outpatient Recommended patient evaluation and treatment for psych disorder. Recommended drug, alcohol and tobacco cessation. Recommended repeat LFTs, consider further workup if remain elevated. Return to Emergency Room if symptoms persist, worsen, or new symptoms develop. Continue taking medications as prescribed below: ? ASPIRIN 81 mg daily until you see your PCP ? DOXYCYCLINE 100 mg twice daily for 4 days ? ELIQUIS 5 mg twice daily indefinitely Prescriptions/Referrals Prescriptions/Med Rec: New aspirin [Ecotrin Low Strength] 81 mg Tablet,Delayed Release (Dr/Ec) 81 mg PO DAILY Qty: 30 0RF Eliquis 2.5 mg Tablet 5 mg PO BID Qty: 60 0RF doxycycline hyclate 100 mg capsule 100 mg PO BID Qty: 8 0RF Rx Instructions: Take 2 tablets daily for 4 more days Referrals: No Primary/Family,Physician [Primary Care Provider] - Patient/Caregiver Discharge Instructions Education Materials: Journaling for Mental Health, Using Blood Thinners Anticoagulants, What Is Pneumonia?, Preventing Pneumonia, Treating Pneumonia, Healthy Kidneys, Heart Failure Print Language: Malawian Stand Alone Forms: [employer] Award Info., Patient Portal Info Letter Discharge Order Discharge Orders: Discharge (Routine); Ordered 08/02/24 Ordered By: Dave Maldonado Quality Discharge Quality Measures VTE prophylaxis Attestestation MD Attestation I have discussed and was present for the essential components of the discharge history, physical examination, diagnosis, and discharge treatment plan with the resident. I agree with the patient's discharge care as documented by the resident and amended herein by me. Don Maldonado, DO. The patient understood all discharge instructions, all questions were answered satisfactorily. The patient was instructed to return to the Emergency Department is symptoms worsened or persisted. Patient significantly improved on day of discharge, echocardiogram did demonstrate a well organized likely old LV thrombus, per cardiology, warfarin is the optimal choice however Eliquis is acceptable as there is concerns for medication compliance and follow-up which may make warfarin a much less optimal choice. Patient would like to follow-up in the [facility], see re sident note above for additional details. Will also continue the patient on aspirin. Patient will be discharged to a [facility], all questions were answered satisfactorily, the patient was stable, afebrile, tolerating p.o. intake and ambulatory time of discharge. See resident note above for additional details in regards to admission. Although this document has been carefully reviewed, there may still be some phonetic and other typographical errors. These errors are purely grammatical due to imperfections in the software program and should not be construed in any way to compromise the substance of the patient's medical care during this visit.
[2024-08-02 08:13] VITALS: PULSE 92; RESP 18; RESP 96; O2SAT 96
[2024-08-02] MEDS: ASPIRIN EC 81 MG TABEC PO (09:00)
[2024-08-02] MEDS: cefTRIAXone/D5w 1gm IV premix 1 GM/50 ML BAG IV (09:01)
[2024-08-02] MEDS: APIXABAN 2.5 MG TABLET 5 MG PO (09:01)
[2024-08-02] MEDS: Magnesium Sulfate 2 GM Ivpb 2 GM/50 ML BAG IV (09:11)
[2024-08-02] MEDS: AZITHROMYCIN INJ 500 MG in SODIUM CHLORIDE 0.9% 250 ML 250 ML 250 MG IV (09:42)
--- NOTE | 2024-08-02 09:45 | PC.SS ---
Addendum entered by Edna Starr 08/02/24 14:16: SS coordinated a transport with [facility] [employer]. Patient picked up at 1:50p.m. Original Note: Follow up note: Patient is ready for d/c. SS met with patient and provided clothing, community resource list as well as a sack lunch. [facility]. SS will provide [employer] transportation at 1p.m. Coordinated with floor nurse.
[2024-08-02 12:00] VITALS: BP 91/62; PULSE 61; PULSE 65; RESP 18; TEMP 36.7; O2SAT 97
== END 2024-08-02 13:52 | disposition other institution (70) | DRG 52 ==
LOC: SERX 21:19 → SERHOLD 21:47 → S2NX 23:13
PROVIDERS: Internal Medicine; Admitting Provider Student in an Organized Health Care Education/Training Program; Emergency Provider Emergency Medicine; Visit Provider Student in an Organized Health Care Education/Training Program
DX: G92.8 Other toxic encephalopathy (principal); E86.0 Dehydration; I10 Essential (primary) hypertension; N17.9 Acute kidney failure, unspecified; E83.42 Hypomagnesemia; D75.1 Secondary polycythemia; R74.01 Elevation of levels of liver transaminase levels; F20.9 Schizophrenia, unspecified; F31.9 Bipolar disorder, unspecified; F15.929 Other stimulant use, unspecified with intoxication, unspecified; N39.0 Urinary tract infection, site not specified; E87.20 Acidosis, unspecified; E87.0 Hyperosmolality and hypernatremia; E87.6 Hypokalemia; E83.52 Hypercalcemia; I21.A1 Myocardial infarction type 2; Z59.00 Homelessness unspecified; I11.0 Hypertensive heart disease with heart failure; I25.2 Old myocardial infarction; E83.51 Hypocalcemia; I50.20 Unspecified systolic (congestive) heart failure; J18.9 Pneumonia, unspecified organism; T43.655A Adverse effect of methamphetamines, initial encounter; Z79.01 Long term (current) use of anticoagulants; I82.891 Chronic embolism and thrombosis of other specified veins; E87.1 Hypo-osmolality and hyponatremia; F15.90 Other stimulant use, unspecified, uncomplicated; Z79.82 Long term (current) use of aspirin; Z91.199 Patient's noncompliance with other medical treatment and regimen due to unspecified reason
CPT/HCPCS: 36415; 70450; 71045; 71250; 74176; 80053; 80061; 80202; 80307; 80320; 81001; 82140; 82550; 83036; 83605; 83735; 83880; 84145; 84295; 84443; 84484; 85025; 85610; 85730; 87040; 87086; 87205; 93005; 93306; 94640; 94664; 96361; 96365; 96367; 96372; 99291; A9270; J0360; J0456; J0696; J1644; J2543; J3370; J3475; J3480; J7030; J7040; J7042; J7050; G0480